=== PATIENT | female | born 1960 | race African-American/Black ===

== ENCOUNTER 2016-05-03 17:54 | Inpatient (IN) | payer SELFPAY ==
[~2016-05-03] VITALS: Ht 160 cm; Wt 85.7 kg
[2016-05-03 19:41] LABS: BILIRUBIN,URINE NEGATIVE (NEG); GLUCOSE,URINE NEGATIVE (NEG); NITRITE,URINE NEGATIVE (NEG); PROTEIN,URINE NEGATIVE (NEG-TRACE); UROBILINOGEN,URINE 0.2 mg/dL (0.2 mg/dL)
--- NOTE | 2016-05-03 19:42 | PHYS DOC ---
Past Medical History Past Medical History: Hypertension, Hypothyroid Past Surgical History: No Surgical History Alcohol Use: None Drug Use: None Adult General Chief Complaint Chief Complaint: UPPER EXTREMITY PAIN HPI HPI Patient is a 56 year old female who presents with right wrist and hand pain. Patient reports since Tuesday she has been having increasing pain and swelling in her right hand and wrist. No trauma or other clear inciting event. She has not taken anything for pain. No prior similar episodes. Only other complaint is urinary frequency. Review of Systems Review of Systems Constitutional: Denies fever or chills Eyes: Denies change in visual acuity or eye pain HENT: Denies nasal congestion or sore throat Respiratory: Denies cough or shortness of breath Cardiovascular: Denies chest pain GI: Denies abdominal pain, nausea, vomiting, bloody stools or diarrhea : Urinary frequency. Denies dysuria or hematuria Musculoskeletal: R wrist and hand pain Integument: Denies rash or skin lesions Neurologic: Denies headache, focal weakness or sensory changes Current Medications Current Medications Current Medications Medications (Trade) Dose Ordered Sig/Bud Start Time Stop Time Status Last Admin Dose Admin Acetaminophen (Tylenol) 650 mg PRN Q4HRS PRN 05/03/16 22:30 05/04/16 22:29 Acetaminophen/ Hydrocodone Bitart (Lortab 5/325) 2 tab 1X ONCE 05/03/16 19:45 05/03/16 19:46 DC 05/03/16 20:10 2 TAB Ceftriaxone Sodium (Rocephin 1gm Ivpb For Omni) 50 ml @ 100 mls/hr 1X ONCE 05/03/16 22:30 05/03/16 22:59 DC 05/03/16 22:55 100 MLS/HR Ibuprofen (Motrin) 800 mg 1X ONCE 05/03/16 19:45 05/03/16 19:46 DC 05/03/16 20:10 800 MG Morphine Sulfate 4 mg 4 mg PRN Q2HR PRN 05/03/16 22:30 05/04/16 22:29 Ondansetron HCl (Zofran) 4 mg PRN Q8HRS PRN 05/03/16 22:30 05/04/16 22:29 Sodium Chloride (Iv Sodium Chloride 0.9% 1000ml Bag) 1,000 ml @ 125 mls/hr Q8H 05/03/16 22:30 05/04/16 22:29 05/03/16 22:46 125 MLS/HR Vancomycin HCl 1 each 1 each PRN DAILY PRN 05/03/16 22:30 Allergies Allergies Allergies Coded Allergies Type Severity Reaction Last Updated Verified No Known Drug Allergies 05/03/16 No Physical Exam Physical Exam Constitutional: Well developed, well nourished, non-toxic appearance HENT: Normocephalic, atraumatic, bilateral external ears normal Eyes: EOMI, conjunctiva normal, no discharge Neck: Normal range of motion, no stridor Cardiovascular: Tachycardic, regular rhythm, no murmur Lungs & Thorax: Bilateral breath sounds clear to auscultation Abdomen: Bowel sounds normal, soft, non-distended, no TTP Skin: Warm, dry, no erythema, no rash Extremities: R wrist and hand swollen compared to L; wrist markedly TTP over volar aspect; significant pain with passive flexion/extension of fingers and wrist; wrist and hand warm to touch; 2+ radial pulse, sensation to light touch fully intact Neurologic: Alert and oriented X 3, no gross deficits noted Psychologic: Affect normal, judgement normal, mood normal Current Patient Data Vital Signs Vital Signs Date Time Temp Pulse Resp B/P Pulse Ox O2 Delivery O2 Flow Rate FiO2 05/03/16 20:10 14 95 Room Air 05/03/16 19:00 98 193/88 05/03/16 18:16 99.4 99.4 Lab Values Laboratory Tests Test 05/03/16 18:48 05/03/16 19:43 05/03/16 19:59 05/03/16 22:28 Urine Color Yellow Urine Clarity Clear Urine pH 7.0 Urine Specific [place] 1.010 Urine Protein Negativemg/dL (NEG-TRACE) Urine Glucose (UA) Negativemg/dL (NEG) Urine Ketones (Stick) Negativemg/dL (NEG) Urine Blood Small (NEG) Urine Nitrite Negative (NEG) Urine Bilirubin Negative (NEG) Urine Urobilinogen Dipstick 0.2mg/dL (0.2 mg/dL) Urine Leukocyte Esterase Negative (NEG) Urine RBC Occ/HPF (0-2) Urine WBC 1-4/HPF (0-4) Urine Squamous Epithelial Cells Occ/LPF Urine Bacteria Few/HPF (0-FEW) Glucose (Fingerstick) 105mg/dL (70-99) H White Blood Count 11.8x10^3/uL (4.0-11.0) H Red Blood Count 4.11x10^6/uL (3.50-5.40) Hemoglobin 10.8g/dL (12.0-15.5) L Hematocrit 31.6% (36.0-47.0) L Mean Corpuscular Volume 77fL (79-100) L Mean Corpuscular Hemoglobin 26pg (25-35) Mean Corpuscular Hemoglobin Concent 34g/dL (31-37) Red Cell Distribution Width 15.1% (11.5-14.5) H Platelet Count 347x10^3/uL (140-400) Neutrophils (%) (Auto) 72% (31-73) Lymphocytes (%) (Auto) 20% (24-48) L Monocytes (%) (Auto) 6% (0-9) Eosinophils (%) (Auto) 1% (0-3) Basophils (%) (Auto) 1% (0-3) Neutrophils # (Auto) 8.5x10^3uL (1.8-7.7) H Lymphocytes # (Auto) 2.3x10^3/uL (1.0-4.8) Monocytes # (Auto) 0.7x10^3/uL (0.0-1.1) Eosinophils # (Auto) 0.1x10^3/uL (0.0-0.7) Basophils # (Auto) 0.1x10^3/uL (0.0-0.2) Erythrocyte Sedimentation Rate 70 (0-25) H Sodium Level 145mmol/L (136-145) Potassium Level 3.6mmol/L (3.5-5.1) Chloride Level 106mmol/L (98-107) Carbon Dioxide Level 29mmol/L (21-32) Anion Gap 10 (6-14) Blood Urea Nitrogen 12mg/dL (7-20) Creatinine 0.9mg/dL (0.6-1.0) Estimated GFR (Cockcroft-Gault) 79.0 Glucose Level 109mg/dL (70-99) H Lactic Acid Level 1.1mmol/L (0.4-2.0) Calcium Level 9.2mg/dL (8.5-10.1) Laboratory Tests 05/03/16 19:59 Laboratory Tests 05/03/16 22:28 EKG EKG [] Radiology/Procedures Radiology/Procedures X-ray R wrist (my read): No acute abnormality X-ray R hand (my read): No acute abnormality Course & Med Decision Making Course & Med Decision Making Pertinent Labs and Imaging studies reviewed. (See chart for details) Patient is 56-year-old female who presents with right hand and wrist pain and swelling. Right hand and wrist inflamed; no evidence of trauma that would act as infectious source. Will obtain labs and x-rays. Oral pain medication ordered for pain relief. Imaging results as above. Labs notable for mild leukocytosis and elevated ESR. On reexamination, wrist and hand remains significantly tender to palpation with significant pain on passive extension of fingers and wrist. Concern for serious process such as flexor tenosynovitis, although patient does not fit a classic picture of this. I discussed with Dr. Castellano. We will admit patient to hospitalist service, cover with antibiotics, keep NPO, and obtain MRI of hand and wrist in the morning. Discussed with Dr. Lange, will admit under her care for further evaluation and treatment. Dragon Disclaimer Dragon Disclaimer This electronic medical record was generated, in whole or in part, using a voice recognition dictation system. Departure Departure Impression: Primary Impression: Wrist pain, right Additional Impression: Hand pain, right Disposition: ADMITTED INPATIENT Admitting Physician: Lakisha Lange Condition: STABLE Referrals: UNKNOWN PCP NAME (PCP) Problem Qualifiers PORTIA DORAN MD May 03, 2016 19:42
[2016-05-03] MEDS ORDERED: HYDROCODONE/APAP 5/325MG TABLET. PO ONE (19:45)
[2016-05-03] MEDS ORDERED: IBUPROFEN 800 MG TABLET. PO ONE (19:45)
[2016-05-03 19:55] LABS: BACTERIA,URINE FEW /HPF (0-FEW); RBC,URINE OCC /HPF (0-2); SQUAMOUS EPITHELIAL CELL,UR OCC /LPF
[2016-05-03 20:07] LABS: BASO # 0.1 x10^3/uL (0.0-0.2); BASO % 1 % (0-3); EOS % 1 % (0-3); HEMATOCRIT 31.6 % (36.0-47.0); HEMOGLOBIN 10.8 g/dL (12.0-15.5); LYMPH # 2.3 x10^3/uL (1.0-4.8); LYMPH % 20 % (24-48); MEAN CORPUSCULAR HEMOGLOBIN 26 pg (25-35); MEAN CORPUSCULAR HGB CONC 34 g/dL (31-37); MEAN CORPUSCULAR VOLUME 77 fL (79-100); MONO % 6 % (0-9); NEUT % 72 % (31-73); PLATELET COUNT 347 x10^3/uL (140-400); RED BLOOD COUNT 4.11 x10^6/uL (3.50-5.40); RED CELL DISTRIBUTION WIDTH 15.1 % (11.5-14.5); WHITE BLOOD COUNT 11.8 x10^3/uL (4.0-11.0)
[2016-05-03] MEDS ORDERED: ONDANSETRON PF 4 MG/2 ML VIAL. IV PRN (22:30)
[2016-05-03] MEDS ORDERED: MORPHINE SULFATE 4 MG/ML DISP.SYRIN. IV PRN (22:30)
[2016-05-03] MEDS ORDERED: CEFTRIAXONE 1GM IVPB FOR OMNI 50 ML IV ONE (22:30)
[2016-05-03] MEDS ORDERED: VANCOMYCIN PER PHARMACY MC PRN (22:30)
[2016-05-03] MEDS ORDERED: ACETAMINOPHEN 325 MG TABLET. PO PRN (22:30)
--- NOTE | 2016-05-03 22:35 | ACF ---
Admission Forms Criteria MUSCULOSKELETAL DISEASE GRG Clinical Indications for Admission to Inpatient Care (Place 'X' for any and all applicable criteria): Hospital admission is needed for appropriate care of the patient because of ANY ONE of the following: [X]I. Fracture, dislocation, or other musculoskeletal injury requiring inpatient care(medical) as indicated by ANY ONE of the following(4)(5)(6)(7) [ ]a) Vertebral fracture requiring observation for instability or neurologic compromise (8) [ ]b) Compartment syndrome (proven or cannot be ruled out during observation level of care) (9) [ ]c) Limb-threatening injury [ ]d) Major injury requiring inpatient stabilization such as traction initiation or external fixation before internal fixation or closure of complex or open fracture [ ]e) Major injury requiring inpatient treatment after emergency or observation level care (as appropriate) [X]f) Severe pain requiring acute inpatient management [ ]II. Newly diagnosed or suspected bone, joint, or orthopedic device infection (e.g., osteomyelitis, septic arthritis) needing ANY ONE of the following(1)(2)(3) [ ]a) IV antibiotics that cannot be initiated in other than inpatient setting (e.g., patient too unstable or home infusion not available) [ ]b) Device removal or replacement [ ]c) Bone or soft tissue debridement [ ]d) Joint drainage (drain placement or repetitive aspirations) [ ]III. Severe rheumatologic disease (e.g., systemic lupus erythematosus, rheumatoid arthritis) with complications or comorbidities (Also use Optimal Recovery Care Criteria or General Recovery Criteria as appropriate on the basis of predominant condition), including ANY ONE of the following(10 )(11)(12)(13) [ ]a) Severe infection (e.g., CAN DRYER infection, sepsis) (14) [ ]b) Respiratory complications, including ANY ONE of the following: [ ]i) Pleural effusion with respiratory compromise [ ]ii) Pulmonary hypertension with congestive failure [ ]iii) Respiratory failure [ ]iv) Pulmonary hemorrhage (15) [ ]c) Hematologic disease, including ANY ONE of the following: [ ]i) Coagulopathy with bleeding [ ]ii) Thrombosis with hypercoagulable state [ ]iii) Thrombotic thrombocytopenic purpura [ ]d) Cerebritis with seizures, psychosis, or other severe abnormalities [ ]e) Vertebral destruction with monitoring needed for cervical myelopathy& possible respiratory compromise [ ]f) Exacerbation that requires inpatient treatment (e.g., intravenous immunosuppression) (16) [ ]g) Acute renal failure [ ]IV. Severe vasculitis with complications or comorbidities (Also use Optimal Recovery Care Criteria or General Recovery Criteria as appropriate on the basis of predominant condition), including ANY ONE of the following(11)(12)(17)(18)(19)(20) [ ]a) CAN DRYER vasculitis with seizures, psychosis, or other severe abnormalities (22) [ ]b) Renal failure (16) [ ]c) Pulmonary hemorrhage (15) [ ]d) Cerebral infarction [ ]e) Gastrointestinal ischemia [ ]f) Gangrene or threatened amputation [ ]g) Exacerbation that requires inpatient treatment (e.g., intravenous immunosuppression) (19)(21) [ ]V. Severe myopathy as indicated by ANY ONE of the following (28)(29) [ ]a) New onset of airway compromise or inability to swallow [ ]b) Respiratory deterioration with observation needed for impending respiratory failure [ ]c) Exacerbation that requires inpatient treatment (e.g., intravenous immunosuppression) [ ]. Severe gout (crystal arthropathy) as indicated by ANY ONE of the following (23)(24) [ ]a) Severe pain requiring acute inpatient management [ ]b) Exacerbation that requires inpatient treatment (e.g., intravenous treatment) [ ]VII.Rhabdomyolysis and ANY ONE of the following (25)(26)(27) [ ]a) Acute renal failure [ ]b) Need for intravenous hydration after emergency or observation level care (as appropriate) [ ]c) Inability to maintain oral hydration [ ]d) Change in mental status [ ]e) Electrolyte abnormality that remains after emergency or observation level care (as appropriate) [ ]VIII Post amputation complication, as indicated by ANY ONE of the following [ ]a) Infection [ ]b) Dehiscence [ ]c) Myodesis failure [ ]IX. Severe pain requiring acute inpatient management as indicated by ALL of the following (30)(31)(32) [ ]a) Continuous or frequent (e.g., every 2 to 4 hrs) parenteral analgesics required [A] [ ]b) Rapid improvement expected from treatment or acute intervention ( e.g., surgery, anesthesia procedure[B] [ ]X. Musculoskeletal Disease and ALL of the following: [ ]a) Symptom or finding for which emergency and observation care have failed or are not considered appropriate (Use General Criteria: Observation Care as appropriate) [ ]b) Presence of ANY ONE of the following [ ]i) A General Admission Criteria [ ]ii) A Pediatric General Admission Criteria The original [facility] content created by [facility] has been revised. The portions of the content which have been revised are identified through the use of italic text or in bold, and [facility] has neither reviewed nor approved the modified material. All other unmodified content is copyright [facility]. Please see references footnoted in the original [facility] edition 2016 Admission Criteria Met?: Yes JONNY LU May 03, 2016 22:34
[2016-05-03] MEDS ORDERED: VANCOMYCIN 2 GM in IV NORMAL SALINE 500ML BAG 500 ML IV ONE (22:45)
[2016-05-03] MEDS: IV NORMAL SALINE 1000ML BAG 1,000 ML IV SCH (22:46)
[2016-05-03 22:52] LABS: CALCIUM 9.2 mg/dL (8.5-10.1); CREATININE 0.9 mg/dL (0.6-1.0); POTASSIUM 3.6 mmol/L (3.5-5.1)
[2016-05-03 23:50] VITALS: BP_SYST 153; BP_DIAS 66; BP_DIAS 73
[2016-05-04] MEDS ORDERED: LISI1TAB5 PO (00:25)
[2016-05-04] MEDS ORDERED: ATOR10TA PO (00:25)
[2016-05-04] MEDS ORDERED: LEVO100T5 PO (00:25)
[2016-05-04] MEDS ORDERED: DIPHENHYDRAMINE HCL 25 MG CAPSULE PO PRN (01:00)
[2016-05-04] MEDS: IV NORMAL SALINE 1000ML BAG 1,000 ML IV SCH ×2 (01:18→12:25)
[2016-05-04] MEDS ORDERED: DIPHENHYDRAMINE 50 MG/ML VIAL IVP ONE (01:30)
[2016-05-04 03:00] VITALS: BP 106/54
[2016-05-04 04:48] LABS: BASO # 0.1 x10^3/uL (0.0-0.2); BASO % 1 % (0-3); EOS % 1 % (0-3); HEMATOCRIT 27.1 % (36.0-47.0); HEMOGLOBIN 9.5 g/dL (12.0-15.5); LYMPH # 3.3 x10^3/uL (1.0-4.8); LYMPH % 34 % (24-48); MEAN CORPUSCULAR HEMOGLOBIN 27 pg (25-35); MEAN CORPUSCULAR HGB CONC 35 g/dL (31-37); MEAN CORPUSCULAR VOLUME 76 fL (79-100); MONO % 10 % (0-9); NEUT % 55 % (31-73); PLATELET COUNT 293 x10^3/uL (140-400); RED BLOOD COUNT 3.57 x10^6/uL (3.50-5.40); RED CELL DISTRIBUTION WIDTH 16.3 % (11.5-14.5); WHITE BLOOD COUNT 9.7 x10^3/uL (4.0-11.0)
[2016-05-04 05:11] LABS: CALCIUM 8.4 mg/dL (8.5-10.1); CREATININE 0.8 mg/dL (0.6-1.0); GFR 90.4; POTASSIUM 3.3 mmol/L (3.5-5.1)
[2016-05-04 07:00] VITALS: BP 123/74
--- NOTE | 2016-05-04 08:01 | RAD ---
EXAM: 1. Right hand 3 views. 2. Right wrist 3 views. HISTORY: Right hand and wrist pain/swelling. COMPARISON: None. FINDINGS: No fractures are identified throughout the right hand or wrist. Alignment is maintained. Nonuniform joint space narrowing and osteophytosis indicate osteoarthritis. This is [id number] at the first carpometacarpal and triscaphe articulations. It is mild at the first through third metacarpophalangeal joints. There is also minimal throughout the interphalangeal joints, most notable at the first ray. IMPRESSION: 1. Mild to moderate osteoarthritis as above.
[2016-05-04] MEDS ORDERED: ONDANSETRON PF 4 MG/2 ML VIAL. IV PRN (09:06)
[2016-05-04] MEDS ORDERED: GADOBUTROL 7.5 MMOL/7.5 ML VIAL IV ONE (09:15)
[2016-05-04] MEDS ORDERED: POTASSIUM CHLORIDE 20 MEQ TABLET.ER. PO ONE (09:30)
--- NOTE | 2016-05-04 10:09 | RAD ---
PROCEDURE MR of the right wrist HISTORY Pain originating in the right wrist for 4 days. Pain and swelling extending into the arm and the hand. TECHNIQUE Multiplanar sequences are obtained. As per request, 7.5 cc Gadovist was administered. COMPARISON None FINDINGS The triangular fibrocartilage demonstrates some internal abnormal signal compatible with degeneration. There is also evidence of some partial proximal surface tearing of the central disc on the thin section images but no through and through defect or rupture. There is a slight ulna minus variance. The extensor carpi ulnaris tendon demonstrates mild tendinosis. First extensor compartment demonstrates mild tendinosis. The flexor tendons are intact. Median nerve is unremarkable. There is some heterogeneous signal within the scapholunate ligament compatible with degeneration. No evidence of scapholunate ligament tear. No evidence of lunotriquetral ligament tear. No evidence of a bone lesion. No acute fracture. There is mild fluid between the flexor tendons and tracking within the adjacent soft tissues and along the distal flexor muscles. There is also mild enhancement. No organized fluid collection. No enhancing solid mass. There is a mild fluid accumulation along the medial aspect of the wrist, may represent small radiocarpal and midcarpal effusion. IMPRESSION 1. Partial tearing of the central disc of the triangular fibrocartilage. 2. Mild extensor carpi ulnaris tendinosis. 3. Mild 1st extensor compartment tendinosis. 4. Mild disorganized tracking fluid and edema within the flexor compartment of the wrist and distal forearm, more so laterally. Nonspecific, consider inflammatory, infectious or traumatic etiology. No evidence of flexor tendon tear. Electronically signed by: Hakeem Salmon MD (May 04, 2016 10:07:46)
[2016-05-04] MEDS: LEVOTHYROXINE 100 MCG TABLET PO SCH (10:41)
[2016-05-04] MEDS: HYDROCHLOROTHIAZIDE 12.5 MG CAPSULE. PO SCH (10:41)
[2016-05-04] MEDS: LISINOPRIL 20 MG TABLET PO SCH (10:41)
[2016-05-04] MEDS ORDERED: VANCOMYCIN 1.25 GM in IV NORMAL SALINE 250ML 250 ML IV SCH (11:00)
[2016-05-04 11:03] VITALS: BP 142/75
--- NOTE | 2016-05-04 11:26 | PDOC1 ---
History and Physical Date of Admission Date of Admission DATE: 05/04/16 TIME: 11:19 Identification/Chief Complaint Chief Complaint R wrist/hand pain Source Source: Caregiver, Chart review, Patient History of Present Illness History of Present Illness 56 y/o AA female, admitted for remarkable R wrist, and hand pain, swelling and limited ROM, no trauma, no identifiable precipitating factor. NO fevers. ESR elevated. WBC 11 on admission, down to 9 today,. HAd vancomycin last night but claimed had itching and so was stopped. NO rash, no SOA. NKDA. Never happened before Xrays of jt neg - MRI done, results pending Son claims pt notes of R knee pain - hx of ligmentous sx on RT knee some 4-5 yrs ago Son claims weak Past Medical History Cardiovascular: HTN, Hyperlipidemia Endocrine: Hypothyroidism Past Surgical History Past Surgical History: Other (Rt knee sx ligamentous) Family History Family History: No Significant Social History Smoke: No ALCOHOL: none Drugs: None Current Problem List Problem List Problems Medical Problems: (1) Hand pain, right Status: Acute (2) Wrist pain, right Status: Acute Problems: Current Medications Current Medications Current Medications Ibuprofen (Motrin) 800 mg 1X ONCE PO Last administered on 05/03/16 20:10; Start 05/03/16 at 19:45; Stop 05/03/16 at 19:46; Status DC Acetaminophen/ Hydrocodone Bitart (Lortab 5/325) 2 tab 1X ONCE PO Last administered on 05/03/16 20:10; Start 05/03/16 at 19:45; Stop 05/03/16 at 19:46; Status DC Vancomycin HCl 1 each 1 each PRN DAILY PRN MC SEE COMMENTS Last administered on 05/04/16 02:31; Start 05/03/16 at 22:30 Ceftriaxone Sodium (Rocephin 1gm Ivpb For Omni) 50 ml @ 100 mls/hr 1X ONCE IV Last administered on 05/03/16 22:55; Start 05/03/16 at 22:30; Stop 05/03/16 at 22:59; Status DC Ondansetron HCl (Zofran) 4 mg PRN Q8HRS PRN IV NAUSEA/VOMITING Last administered on 05/04/16 07:42; Start 05/03/16 at 22:30; Stop 05/04/16 at 09:08; Status DC Morphine Sulfate 4 mg 4 mg PRN Q2HR PRN IV SEVERE PAIN; Start 05/03/16 at 22:30 ; Stop 05/04/16 at 22:29 Sodium Chloride (Iv Sodium Chloride 0.9% 1000ml Bag) 1,000 ml @ 125 mls/hr Q8H IV Last administered on 05/04/16 01:18; Start 05/03/16 at 22:30; Stop 05/04/16 at 22:29 Acetaminophen 650 mg 650 mg PRN Q4HRS PRN PO FEVER; Start 05/03/16 at 22:30; Stop 05/04/16 at 22:29 Vancomycin HCl/ Sodium Chloride (Iv Sodium Chloride 0.9% 500ml Bag) 500 ml @ 250 mls/hr 1X ONCE IV Last administered on 05/03/16 22:45; Start 05/03/16 at 22 :45; Stop 05/04/16 at 00:44; Status DC Diphenhydramine HCl (Benadryl) 25 mg 1X ONCE IVP ; Start 05/04/16 at 01:30; Stop 05/04/16 at 01:31; Status DC Diphenhydramine HCl 25 mg 25 mg PRN Q4HRS PRN PO ITCHING; Start 05/04/16 at 01: 00; Stop 05/05/16 at 01:00 Vancomycin HCl/ Sodium Chloride (Iv Sodium Chloride 0.9% 250ml) 250 ml @ 167 mls/hr Q12H IV ; Start 05/04/16 at 11:00 Vancomycin HCl 1 each 1X ONCE MC ; Start 05/05/16 at 10:30; Stop 05/05/16 at 10: 31 Gadobutrol (Gadavist) 7.5 mmol 1X ONCE IV Last administered on 05/04/16 09:25 ; Start 05/04/16 at 09:15; Stop 05/04/16 at 09:16; Status DC Ondansetron HCl (Zofran) 4 mg PRN Q6HRS PRN IV NAUSEA/VOMITING; Start 05/04/16 at 09:06 Atorvastatin Calcium (Lipitor) 10 mg QHS PO ; Start 05/04/16 at 21:00 Levothyroxine Sodium (Synthroid) 100 mcg DAILY07 PO Last administered on 10:41; Start 05/04/16 at 10:00 Non-Formulary Medication 1 tab DAILY PO ; Start 05/05/16 at 09:00; Status UNV Potassium Chloride (Klor-Con) 40 meq 1X ONCE PO Last administered on 05/04/16 10:42; Start 05/04/16 at 09:30; Stop 05/04/16 at 09:31; Status DC Lisinopril (Prinivil) 20 mg DAILY PO Last administered on 05/04/16 10:41; Start 05/04/16 at 10:00 Hydrochlorothiazide (Microzide) 12.5 mg DAILY PO Last administered on 05/04/16 10:41; Start 05/04/16 at 10:00 Active Scripts Active Reported Levothyroxine Sodium 100 Mcg Tablet 1 Tab PO DAILY Lisinopril-Hctz 20-12.5 Mg Tab (Lisinopril/Hydrochlorothiazide) 1 Each Tablet 1 Tab PO DAILY Lipitor (Atorvastatin Calcium) 10 Mg Tablet 1 Tab PO DAILY Allergies Allergies: Coded Allergies: No Known Drug Allergies (Unverified , 05/03/16) ROS General: YES: Other (weak, RT knee pain, all else neg except HPI) Physical Exam General: Alert, Oriented X3, Cooperative, No acute distress HEENT: PERRLA, EOMI Lungs: Clear to auscultation Heart: S1S2, RRR, no thrills, no rubs, no gallops Cardiovascular: S1, S2 Breasts: Normal Abdomen: Normal bowel sounds, Soft, No tenderness, No hepatosplenomegaly, No masses Rectal Exam: not examined PELVIC: Nml ext genitalia Extremities: Other (RTc wrist and hand swelling, pain, limited ROM, no open lesions, limited extension and flexion) Skin: No rashes, No breakdown, No significant lesion Neuro: Normal gait, Normal speech, Strength at 5/5 X4 ext, Normal tone, Sensation intact, Cranial nerves 3-12 NL, Reflexes 2+ Psych/Mental Status: Mental status NL, Mood NL Vitals Vitals Vital Signs Date Time Temp Pulse Resp B/P Pulse Ox O2 Delivery O2 Flow Rate FiO2 05/04/16 11:03 98.1 80 18 142/75 98 Room Air 98.1 Labs Labs Laboratory Tests Test 05/03/16 18:48 05/03/16 19:43 05/03/16 19:59 05/03/16 22:28 Urine Color Yellow Urine Clarity Clear Urine pH 7.0 Urine Specific Lapaz 1.010 Urine Protein Negativemg/dL (NEG-TRACE) Urine Glucose (UA) Negativemg/dL (NEG) Urine Ketones (Stick) Negativemg/dL (NEG) Urine Blood Small (NEG) Urine Nitrite Negative (NEG) Urine Bilirubin Negative (NEG) Urine Urobilinogen Dipstick 0.2mg/dL (0.2 mg/dL) Urine Leukocyte Esterase Negative (NEG) Urine RBC Occ/HPF (0-2) Urine WBC 1-4/HPF (0-4) Urine Squamous Epithelial Cells Occ/LPF Urine Bacteria Few/HPF (0-FEW) Glucose (Fingerstick) 105mg/dL (70-99) White Blood Count 11.8x10^3/uL (4.0-11.0) Red Blood Count 4.11x10^6/uL (3.50-5.40) Hemoglobin 10.8g/dL (12.0-15.5) Hematocrit 31.6% (36.0-47.0) Mean Corpuscular Volume 77fL (79-100) Mean Corpuscular Hemoglobin 26pg (25-35) Mean Corpuscular Hemoglobin Concent 34g/dL (31-37) Red Cell Distribution Width 15.1% (11.5-14.5) Platelet Count 347x10^3/uL (140-400) Neutrophils (%) (Auto) 72% (31-73) Lymphocytes (%) (Auto) 20% (24-48) Monocytes (%) (Auto) 6% (0-9) Eosinophils (%) (Auto) 1% (0-3) Basophils (%) (Auto) 1% (0-3) Neutrophils # (Auto) 8.5x10^3uL (1.8-7.7) Lymphocytes # (Auto) 2.3x10^3/uL (1.0-4.8) Monocytes # (Auto) 0.7x10^3/uL (0.0-1.1) Eosinophils # (Auto) 0.1x10^3/uL (0.0-0.7) Basophils # (Auto) 0.1x10^3/uL (0.0-0.2) Erythrocyte Sedimentation Rate 70 (0-25) Sodium Level 145mmol/L (136-145) Potassium Level 3.6mmol/L (3.5-5.1) Chloride Level 106mmol/L (98-107) Carbon Dioxide Level 29mmol/L (21-32) Anion Gap 10 (6-14) Blood Urea Nitrogen 12mg/dL (7-20) Creatinine 0.9mg/dL (0.6-1.0) Estimated GFR (Cockcroft-Gault) 79.0 Glucose Level 109mg/dL (70-99) Lactic Acid Level 1.1mmol/L (0.4-2.0) Calcium Level 9.2mg/dL (8.5-10.1) Test 05/04/16 04:38 White Blood Count 9.7x10^3/uL (4.0-11.0) Red Blood Count 3.57x10^6/uL (3.50-5.40) Hemoglobin 9.5g/dL (12.0-15.5) Hematocrit 27.1% (36.0-47.0) Mean Corpuscular Volume 76fL (79-100) Mean Corpuscular Hemoglobin 27pg (25-35) Mean Corpuscular Hemoglobin Concent 35g/dL (31-37) Red Cell Distribution Width 16.3% (11.5-14.5) Platelet Count 293x10^3/uL (140-400) Neutrophils (%) (Auto) 55% (31-73) Lymphocytes (%) (Auto) 34% (24-48) Monocytes (%) (Auto) 10% (0-9) Eosinophils (%) (Auto) 1% (0-3) Basophils (%) (Auto) 1% (0-3) Neutrophils # (Auto) 5.3x10^3uL (1.8-7.7) Lymphocytes # (Auto) 3.3x10^3/uL (1.0-4.8) Monocytes # (Auto) 0.9x10^3/uL (0.0-1.1) Eosinophils # (Auto) 0.1x10^3/uL (0.0-0.7) Basophils # (Auto) 0.1x10^3/uL (0.0-0.2) Sodium Level 144mmol/L (136-145) Potassium Level 3.3mmol/L (3.5-5.1) Chloride Level 108mmol/L (98-107) Carbon Dioxide Level 27mmol/L (21-32) Anion Gap 9 (6-14) Blood Urea Nitrogen 13mg/dL (7-20) Creatinine 0.8mg/dL (0.6-1.0) Estimated GFR (Cockcroft-Gault) 90.4 Glucose Level 116mg/dL (70-99) Calcium Level 8.4mg/dL (8.5-10.1) Laboratory Tests Test 05/03/16 18:48 05/03/16 19:43 05/03/16 19:59 05/03/16 22:28 Urine Color Yellow Urine Clarity Clear Urine pH 7.0 Urine Specific Lapaz 1.010 Urine Protein Negativemg/dL (NEG-TRACE) Urine Glucose (UA) Negativemg/dL (NEG) Urine Ketones (Stick) Negativemg/dL (NEG) Urine Blood Small (NEG) Urine Nitrite Negative (NEG) Urine Bilirubin Negative (NEG) Urine Urobilinogen Dipstick 0.2mg/dL (0.2 mg/dL) Urine Leukocyte Esterase Negative (NEG) Urine RBC Occ/HPF (0-2) Urine WBC 1-4/HPF (0-4) Urine Squamous Epithelial Cells Occ/LPF Urine Bacteria Few/HPF (0-FEW) Glucose (Fingerstick) 105mg/dL (70-99) White Blood Count 11.8x10^3/uL (4.0-11.0) Red Blood Count 4.11x10^6/uL (3.50-5.40) Hemoglobin 10.8g/dL (12.0-15.5) Hematocrit 31.6% (36.0-47.0) Mean Corpuscular Volume 77fL (79-100) Mean Corpuscular Hemoglobin 26pg (25-35) Mean Corpuscular Hemoglobin Concent 34g/dL (31-37) Red Cell Distribution Width 15.1% (11.5-14.5) Platelet Count 347x10^3/uL (140-400) Neutrophils (%) (Auto) 72% (31-73) Lymphocytes (%) (Auto) 20% (24-48) Monocytes (%) (Auto) 6% (0-9) Eosinophils (%) (Auto) 1% (0-3) Basophils (%) (Auto) 1% (0-3) Neutrophils # (Auto) 8.5x10^3uL (1.8-7.7) Lymphocytes # (Auto) 2.3x10^3/uL (1.0-4.8) Monocytes # (Auto) 0.7x10^3/uL (0.0-1.1) Eosinophils # (Auto) 0.1x10^3/uL (0.0-0.7) Basophils # (Auto) 0.1x10^3/uL (0.0-0.2) Erythrocyte Sedimentation Rate 70 (0-25) Sodium Level 145mmol/L (136-145) Potassium Level 3.6mmol/L (3.5-5.1) Chloride Level 106mmol/L (98-107) Carbon Dioxide Level 29mmol/L (21-32) Anion Gap 10 (6-14) Blood Urea Nitrogen 12mg/dL (7-20) Creatinine 0.9mg/dL (0.6-1.0) Estimated GFR (Cockcroft-Gault) 79.0 Glucose Level 109mg/dL (70-99) Lactic Acid Level 1.1mmol/L (0.4-2.0) Calcium Level 9.2mg/dL (8.5-10.1) Test 05/04/16 04:38 White Blood Count 9.7x10^3/uL (4.0-11.0) Red Blood Count 3.57x10^6/uL (3.50-5.40) Hemoglobin 9.5g/dL (12.0-15.5) Hematocrit 27.1% (36.0-47.0) Mean Corpuscular Volume 76fL (79-100) Mean Corpuscular Hemoglobin 27pg (25-35) Mean Corpuscular Hemoglobin Concent 35g/dL (31-37) Red Cell Distribution Width 16.3% (11.5-14.5) Platelet Count 293x10^3/uL (140-400) Neutrophils (%) (Auto) 55% (31-73) Lymphocytes (%) (Auto) 34% (24-48) Monocytes (%) (Auto) 10% (0-9) Eosinophils (%) (Auto) 1% (0-3) Basophils (%) (Auto) 1% (0-3) Neutrophils # (Auto) 5.3x10^3uL (1.8-7.7) Lymphocytes # (Auto) 3.3x10^3/uL (1.0-4.8) Monocytes # (Auto) 0.9x10^3/uL (0.0-1.1) Eosinophils # (Auto) 0.1x10^3/uL (0.0-0.7) Basophils # (Auto) 0.1x10^3/uL (0.0-0.2) Sodium Level 144mmol/L (136-145) Potassium Level 3.3mmol/L (3.5-5.1) Chloride Level 108mmol/L (98-107) Carbon Dioxide Level 27mmol/L (21-32) Anion Gap 9 (6-14) Blood Urea Nitrogen 13mg/dL (7-20) Creatinine 0.8mg/dL (0.6-1.0) Estimated GFR (Cockcroft-Gault) 90.4 Glucose Level 116mg/dL (70-99) Calcium Level 8.4mg/dL (8.5-10.1) VTE Prophylaxis Ordered VTE Prophylaxis Devices: Yes VTE Pharmacological Prophylaxi: Yes Assessment/Plan Assessment/Plan 1. Inflammatory Joint, RT wrist and hand swelling, pain, limited ROM difftls include septic jt, CPPD, doubt gout, etc 2. HTN, dyslipidemia, hypothyroidism, chronic stable 3. Adverse reaction to vanco PLAN: Check Uric acid ESR is elevated Dc vanc Do IV rocpehin instead Await MRI- if signif fluid might need aspiration and get sample for analysis May check knee xray per son's request PT/OT inze rn, ID and family and pt ANTONIA DEVRIES MD May 04, 2016 11:26
[2016-05-04] MEDS ORDERED: CEFTRIAXONE SODIUM 1 GM in IV NORMAL SALINE 50ML 50 ML IV SCH (12:00)
[2016-05-04] MEDS: NAPROXEN 500 MG TABLET PO SCH ×2 (12:00→16:21)
[2016-05-04 15:00] VITALS: BP 136/78
--- NOTE | 2016-05-04 15:35 | RAD ---
EXAM: Right knee, 2 views HISTORY: Right knee pain. COMPARISON: 11/24/2011. FINDINGS: No fractures are identified. The medial compartmental joint space is mostly effaced with mild varus angulation. There are small osteophytes medially and laterally and moderate osteophytes along the patellofemoral compartment. Atherosclerotic calcifications are noted. There is a trace joint effusion. IMPRESSION: 1. Moderate to severe medial compartment predominant tricompartmental osteoarthritis has progressed since 2011.
[2016-05-04 19:00] VITALS: BP 114/69
[2016-05-04] MEDS ORDERED: ATORVASTATIN CALCIUM 10 MG TABLET. PO SCH (21:00)
[2016-05-04 23:00] VITALS: BP 132/77
[2016-05-05 03:00] VITALS: BP 121/70
--- NOTE | 2016-05-05 05:19 | CONS ---
DATE OF CONSULTATION: 05/04/2016 REQUESTING PHYSICIAN: Dr. Lange REASON FOR CONSULTATION: Right wrist and hand pain. HISTORY OF PRESENT ILLNESS: The patient is a 56-year-old female who had atraumatic onset of right wrist and hand pain since Tuesday. She denies any trauma whatsoever. She denies any scratch or poke injury to the hand, wrist or any of the fingers. She has not taken anything for pain, but notes that she has difficulty moving, the fingers in flexion or extension. She had severe pain, previous at the time of admission in the ER with moving her thumb at all, but can now readily move it. PAST MEDICAL HISTORY: Significant for hypertension and hypothyroidism. PAST SURGICAL HISTORY: She has no surgical history. SOCIAL HISTORY: Lives independently. Denies tobacco, alcohol or drug use. MEDICATIONS: List is reviewed. ALLERGIES: She has no known drug allergies. REVIEW OF SYSTEMS: Denies any fever or chills; ____ pain. She complains about it all occasionally in her right knee, activity related, but that is not a current problem. She also has some urinary frequency, occasionally, but denies any recent changes of bowel or bladder function, numbness, tingling in extremities mainly and no skin rashes. She does just indicate the warmth and swelling and pain with motion of the right wrist and hand. PHYSICAL EXAMINATION: VITAL SIGNS: A pleasant, cooperative female. Temperature 97.9, pulse 75, respirations 18, blood pressure 123/74, and 96% saturation on room air. EXTREMITIES: Examination of the right hand reveals some mild swelling in the area of the volar hand compared to the left. She is mildly tender in the palm diffusely. No distal tenderness over the tendon sheaths. She does have some tenderness over the wrist itself and over the area of the carpal tunnel, but can actually actively move her fingers in flexion and extension pretty well, but not get down into a full grasp secondary to pain. There is really no swelling of her digits. No passive pain on range of motion and very severe acute pain with active or passive motion of the thumb or fingers. No redness, erythema or sign of any type of trauma or wound whatsoever and she has no paresthesia and compression over the median nerve and negative Phalen's sign present. No instability or clunk at the wrist, some slight tenderness over the ulnar styloid area. Normal examination of the contralateral left hand and wrist, bilateral shoulders and elbows with overall intact motor function, distal pulses, sensation, reflexes, skin in both upper extremities throughout. LABORATORY EXAMINATION: On admission was a white count of 11.8, currently 9.7. Sedimentation rate is 70. DIAGNOSTIC DATA: MRI of the wrist and hand showed some inflammation in the area of the volar hand, carpal tunnel and proximal wrist, some mild synovitis present. No extension really noted into the flexor tendon sheaths and no bony edema of any type was noted. Incidentally, she does have a tear of the triangular fibrocartilage and a partial tear of the scapholunate ligament. IMPRESSION: Right wrist inflammation likely noninfectious etiology, resolving. TREATMENT PLAN: I went over with her that her exam apparently seems significantly different than the Emergency Department last night even this morning. I think this is probably given the atraumatic onset noninfectious cause and we could simply observe at this time. Certainly, if she becomes worse or does not resolve as expected, I would probably plan some type of opening the area ____ of the carpal tunnel and take cultures if necessary, but again I would hold off on this at this point due to her significant improvement and lack of paresthesias and the fact that this just may be an inflammatory situation very likely as opposed to any infectious etiology. I will follow along as needed. TONJA SMITH MD DR: TIM/rommel JOB#: [id number] / [id number]
[2016-05-05] MEDS: LEVOTHYROXINE 100 MCG TABLET PO SCH (06:20)
[2016-05-05 06:37] LABS: BASO % 0 % (0-3); EOS % 1 % (0-3); HEMATOCRIT 31.7 % (36.0-47.0); HEMOGLOBIN 10.8 g/dL (12.0-15.5); LYMPH % 36 % (24-48); MEAN CORPUSCULAR HEMOGLOBIN 26 pg (25-35); MEAN CORPUSCULAR HGB CONC 34 g/dL (31-37); MEAN CORPUSCULAR VOLUME 78 fL (79-100); MONO % 9 % (0-9); NEUT % 53 % (31-73); PLATELET COUNT 315 x10^3/uL (140-400); RED BLOOD COUNT 4.08 x10^6/uL (3.50-5.40); RED CELL DISTRIBUTION WIDTH 15.2 % (11.5-14.5); WHITE BLOOD COUNT 8.1 x10^3/uL (4.0-11.0)
[2016-05-05 06:43] LABS: CALCIUM 9.4 mg/dL (8.5-10.1); CREATININE 0.8 mg/dL (0.6-1.0); GFR 90.4; POTASSIUM 4.1 mmol/L (3.5-5.1)
[2016-05-05 07:00] VITALS: BP 135/81
[2016-05-05] MEDS ORDERED: NON FORMULARY ITEM (Lisinopril/Hydrochlorothiazide (Lisinopril-Hctz 20-12.5 Mg Tab) 1 TAB) PO SCH (09:00)
--- NOTE | 2016-05-05 09:49 | PDOC ---
Infectious Disease Note Subjective Subjective Pt admitted with rt wrist pain, no trauma, no fever, no other complaints ROS ROS GEN: Denies fevers, chills, sweats HEENT: Denies blurred vision, sore throat CV: Denies chest pain RESP: Denies shortness of air, cough GI: Denies n/v/d NEURO: Denies confusion, dizziness MSK: Denies weakness, other joint pain/swelling Vital Sign Vital Signs Vital Signs Date Time Temp Pulse Resp B/P Pulse Ox O2 Delivery O2 Flow Rate FiO2 05/05/16 08:00 Room Air 05/05/16 07:00 97.7 69 18 135/81 96 97.7 Physical Exam PHYSICAL EXAM GENERAL: NAD, Alert HEENT: PERRL, OC/OP NECK: Supple, no JVD, no LN LUNGS: Clear HEART: S1S2, no gallop, no murmur ABD: Soft, NT, no organomegaly, no rebound EXT: No edema, no cyanosis, rt wrist with some inflammation, no fluid, no redness 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, 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, no focal neurologic deficit SKIN: No rash IV: ok Labs Lab Laboratory Tests Test 05/05/16 06:10 White Blood Count 8.1x10^3/uL (4.0-11.0) Red Blood Count 4.08x10^6/uL (3.50-5.40) Hemoglobin 10.8g/dL (12.0-15.5) Hematocrit 31.7% (36.0-47.0) Mean Corpuscular Volume 78fL (79-100) Mean Corpuscular Hemoglobin 26pg (25-35) Mean Corpuscular Hemoglobin Concent 34g/dL (31-37) Red Cell Distribution Width 15.2% (11.5-14.5) Platelet Count 315x10^3/uL (140-400) Neutrophils (%) (Auto) 53% (31-73) Lymphocytes (%) (Auto) 36% (24-48) Monocytes (%) (Auto) 9% (0-9) Eosinophils (%) (Auto) 1% (0-3) Basophils (%) (Auto) 0% (0-3) Neutrophils # (Auto) 4.3x10^3uL (1.8-7.7) Lymphocytes # (Auto) 3.0x10^3/uL (1.0-4.8) Monocytes # (Auto) 0.7x10^3/uL (0.0-1.1) Eosinophils # (Auto) 0.1x10^3/uL (0.0-0.7) Basophils # (Auto) 0.0x10^3/uL (0.0-0.2) Sodium Level 141mmol/L (136-145) Potassium Level 4.1mmol/L (3.5-5.1) Chloride Level 105mmol/L (98-107) Carbon Dioxide Level 28mmol/L (21-32) Anion Gap 8 (6-14) Blood Urea Nitrogen 16mg/dL (7-20) Creatinine 0.8mg/dL (0.6-1.0) Estimated GFR (Cockcroft-Gault) 90.4 Glucose Level 112mg/dL (70-99) Calcium Level 9.4mg/dL (8.5-10.1) Micro MRI noted Objective Assessment Tenosynovitis rt wrist Plan Plan of Care ai wilson/arnol on anti inflammatory MITZY Anderson MD May 05, 2016 09:49
[2016-05-05] MEDS ORDERED: NAPR500T3 PO (10:32)
--- NOTE | 2016-05-05 10:35 | PDOC3 ---
Discharge Summary Visit Information Date of Admission: May 03, 2016 Date of Discharge: May 05, 2016 Admitting Diagnosis Comment: Tenosynovitis, R wrist Elevated uric acid NO infection Tricompratment OA, R knee Obesity Final Diagnosis Problems Medical Problems: (1) Hand pain, right Status: Acute (2) Tenosynovitis Status: Acute (3) Wrist pain, right Status: Acute Brief Hospital Course Allergies Allergies Coded Allergies Type Severity Reaction Last Updated Verified No Known Drug Allergies 05/03/16 No Vital Signs Vital Signs Date Time Temp Pulse Resp B/P Pulse Ox O2 Delivery O2 Flow Rate FiO2 05/05/16 08:00 Room Air 05/05/16 07:00 97.7 69 18 135/81 96 97.7 Lab Results Laboratory Tests Test 05/03/16 18:48 05/03/16 19:43 05/03/16 19:59 05/03/16 22:28 Urine Color Yellow Urine Clarity Clear Urine pH 7.0 Urine Specific [place] 1.010 Urine Protein Negativemg/dL (NEG-TRACE) Urine Glucose (UA) Negativemg/dL (NEG) Urine Ketones (Stick) Negativemg/dL (NEG) Urine Blood Small (NEG) Urine Nitrite Negative (NEG) Urine Bilirubin Negative (NEG) Urine Urobilinogen Dipstick 0.2mg/dL (0.2 mg/dL) Urine Leukocyte Esterase Negative (NEG) Urine RBC Occ/HPF (0-2) Urine WBC 1-4/HPF (0-4) Urine Squamous Epithelial Cells Occ/LPF Urine Bacteria Few/HPF (0-FEW) Glucose (Fingerstick) 105mg/dL (70-99) White Blood Count 11.8x10^3/uL (4.0-11.0) Red Blood Count 4.11x10^6/uL (3.50-5.40) Hemoglobin 10.8g/dL (12.0-15.5) Hematocrit 31.6% (36.0-47.0) Mean Corpuscular Volume 77fL (79-100) Mean Corpuscular Hemoglobin 26pg (25-35) Mean Corpuscular Hemoglobin Concent 34g/dL (31-37) Red Cell Distribution Width 15.1% (11.5-14.5) Platelet Count 347x10^3/uL (140-400) Neutrophils (%) (Auto) 72% (31-73) Lymphocytes (%) (Auto) 20% (24-48) Monocytes (%) (Auto) 6% (0-9) Eosinophils (%) (Auto) 1% (0-3) Basophils (%) (Auto) 1% (0-3) Neutrophils # (Auto) 8.5x10^3uL (1.8-7.7) Lymphocytes # (Auto) 2.3x10^3/uL (1.0-4.8) Monocytes # (Auto) 0.7x10^3/uL (0.0-1.1) Eosinophils # (Auto) 0.1x10^3/uL (0.0-0.7) Basophils # (Auto) 0.1x10^3/uL (0.0-0.2) Erythrocyte Sedimentation Rate 70 (0-25) Sodium Level 145mmol/L (136-145) Potassium Level 3.6mmol/L (3.5-5.1) Chloride Level 106mmol/L (98-107) Carbon Dioxide Level 29mmol/L (21-32) Anion Gap 10 (6-14) Blood Urea Nitrogen 12mg/dL (7-20) Creatinine 0.9mg/dL (0.6-1.0) Estimated GFR (Cockcroft-Gault) 79.0 Glucose Level 109mg/dL (70-99) Lactic Acid Level 1.1mmol/L (0.4-2.0) Calcium Level 9.2mg/dL (8.5-10.1) Test 05/04/16 04:38 05/05/16 06:10 White Blood Count 9.7x10^3/uL (4.0-11.0) 8.1x10^3/uL (4.0-11.0) Red Blood Count 3.57x10^6/uL (3.50-5.40) 4.08x10^6/uL (3.50-5.40) Hemoglobin 9.5g/dL (12.0-15.5) 10.8g/dL (12.0-15.5) Hematocrit 27.1% (36.0-47.0) 31.7% (36.0-47.0) Mean Corpuscular Volume 76fL (79-100) 78fL (79-100) Mean Corpuscular Hemoglobin 27pg (25-35) 26pg (25-35) Mean Corpuscular Hemoglobin Concent 35g/dL (31-37) 34g/dL (31-37) Red Cell Distribution Width 16.3% (11.5-14.5) 15.2% (11.5-14.5) Platelet Count 293x10^3/uL (140-400) 315x10^3/uL (140-400) Neutrophils (%) (Auto) 55% (31-73) 53% (31-73) Lymphocytes (%) (Auto) 34% (24-48) 36% (24-48) Monocytes (%) (Auto) 10% (0-9) 9% (0-9) Eosinophils (%) (Auto) 1% (0-3) 1% (0-3) Basophils (%) (Auto) 1% (0-3) 0% (0-3) Neutrophils # (Auto) 5.3x10^3uL (1.8-7.7) 4.3x10^3uL (1.8-7.7) Lymphocytes # (Auto) 3.3x10^3/uL (1.0-4.8) 3.0x10^3/uL (1.0-4.8) Monocytes # (Auto) 0.9x10^3/uL (0.0-1.1) 0.7x10^3/uL (0.0-1.1) Eosinophils # (Auto) 0.1x10^3/uL (0.0-0.7) 0.1x10^3/uL (0.0-0.7) Basophils # (Auto) 0.1x10^3/uL (0.0-0.2) 0.0x10^3/uL (0.0-0.2) Sodium Level 144mmol/L (136-145) 141mmol/L (136-145) Potassium Level 3.3mmol/L (3.5-5.1) 4.1mmol/L (3.5-5.1) Chloride Level 108mmol/L (98-107) 105mmol/L (98-107) Carbon Dioxide Level 27mmol/L (21-32) 28mmol/L (21-32) Anion Gap 9 (6-14) 8 (6-14) Blood Urea Nitrogen 13mg/dL (7-20) 16mg/dL (7-20) Creatinine 0.8mg/dL (0.6-1.0) 0.8mg/dL (0.6-1.0) Estimated GFR (Cockcroft-Gault) 90.4 90.4 Glucose Level 116mg/dL (70-99) 112mg/dL (70-99) Uric Acid 7.5mg/dL (2.6-6.0) Calcium Level 8.4mg/dL (8.5-10.1) 9.4mg/dL (8.5-10.1) Laboratory Tests Test 05/05/16 06:10 White Blood Count 8.1x10^3/uL (4.0-11.0) Red Blood Count 4.08x10^6/uL (3.50-5.40) Hemoglobin 10.8g/dL (12.0-15.5) Hematocrit 31.7% (36.0-47.0) Mean Corpuscular Volume 78fL (79-100) Mean Corpuscular Hemoglobin 26pg (25-35) Mean Corpuscular Hemoglobin Concent 34g/dL (31-37) Red Cell Distribution Width 15.2% (11.5-14.5) Platelet Count 315x10^3/uL (140-400) Neutrophils (%) (Auto) 53% (31-73) Lymphocytes (%) (Auto) 36% (24-48) Monocytes (%) (Auto) 9% (0-9) Eosinophils (%) (Auto) 1% (0-3) Basophils (%) (Auto) 0% (0-3) Neutrophils # (Auto) 4.3x10^3uL (1.8-7.7) Lymphocytes # (Auto) 3.0x10^3/uL (1.0-4.8) Monocytes # (Auto) 0.7x10^3/uL (0.0-1.1) Eosinophils # (Auto) 0.1x10^3/uL (0.0-0.7) Basophils # (Auto) 0.0x10^3/uL (0.0-0.2) Sodium Level 141mmol/L (136-145) Potassium Level 4.1mmol/L (3.5-5.1) Chloride Level 105mmol/L (98-107) Carbon Dioxide Level 28mmol/L (21-32) Anion Gap 8 (6-14) Blood Urea Nitrogen 16mg/dL (7-20) Creatinine 0.8mg/dL (0.6-1.0) Estimated GFR (Cockcroft-Gault) 90.4 Glucose Level 112mg/dL (70-99) Calcium Level 9.4mg/dL (8.5-10.1) Brief Hospital Course Ms. Castaneda is a 56 y/o AA female, admitted for remarkable R wrist, and hand pain, swelling and limited ROM, no trauma, no identifiable precipitating factor. NO fevers. ESR elevated. WBC 11 on admission, down to 9 today,. HAd vancomycin last night but claimed had itching and so was stopped. NO rash, no SOA. NKDA. Never happened before Xrays of it neg - MRI done, results pending Son claims pt notes of R knee pain - hx of ligmentous sx on RT knee some 4-5 yrs ago Son claims weak MRI shows tenosynovitis Rt knee xray shows OA BEtter wrist with naproxen 500 BID given 24 hrs - will dc on the same Ff up ortho if any worse Discharge Information Condition at Discharge: Improved, Stable Disposition/Orders: D/C to Home Scheduled Atorvastatin Calcium (Lipitor) 1 TAB PO DAILY (Reported) Levothyroxine Sodium (Levothyroxine Sodium) 1 TAB PO DAILY (Reported) Lisinopril/Hydrochlorothiazide (Lisinopril-Hctz 20-12.5 Mg Tab) 1 TAB PO DAILY ( Reported) ANTONIA DEVRIES MD May 05, 2016 10:35
[2016-05-05 11:00] VITALS: BP 124/77
[2016-05-05 12:53] VITALS: BP 124/77
[2016-05-05] MEDS: HYDROCHLOROTHIAZIDE 12.5 MG CAPSULE. PO SCH (12:53)
[2016-05-05] MEDS: NAPROXEN 500 MG TABLET PO SCH (12:53)
[2016-05-05] MEDS: LISINOPRIL 20 MG TABLET PO SCH (12:53)
== END 2016-05-05 13:20 | disposition home or self-care (01) | DRG 558 ==
LOC: ER 17:54 → 5 SOUTH 22:31
PROVIDERS: ADMIT Internal Medicine; ATTEND Internal Medicine
DX: M65.9 Synovitis and tenosynovitis, unspecified (principal); E03.9 Hypothyroidism, unspecified; E78.5 Hyperlipidemia, unspecified; I10 Essential (primary) hypertension; M19.90 Unspecified osteoarthritis, unspecified site; Z79.899 Other long term (current) drug therapy
CPT/HCPCS: 36415; 73110; 73130; 73223; 73560; 80048; 81001; 82947; 83605; 84550; 85027; 85651; 87040; 96365; 96366; 96368; J0690; J0696; J2405; J3370; J7030; J7040; 99285-25; A9585

== ENCOUNTER 2020-06-18 07:32 | Observation (INO) | payer OTHER ==
[~2020-06-18] VITALS: Ht 160 cm; Wt 88.5 kg
[~2020-06-18 07:32] MED LIST: ATOR10TA PO; LEVO100T5 PO; LISI1TAB37 PO; NAPR-514 PO
[2020-06-18] MEDS ORDERED: IV NORMAL SALINE 1000ML BAG 1,000 ML IV ONE (08:00)
--- NOTE | 2020-06-18 08:04 | PHYS DOC ---
Past Medical History Past Medical History: CVA, Hypertension, Hypothyroid, Seizure Additional Past Medical Histor: l. sided deficit Past Surgical History: No Surgical History Smoking Status: Former Smoker Alcohol Use: None Drug Use: None General Adult EDM: Chief Complaint: SEIZURE HPI: HPI: Patient is a 60 year old female who was brought here by EMS from home due to seizure activity. 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 Patient is on Keppra 750 mg BID. Her family says her last seizure was last year. She had not taken her morning medication yet. Patient was found to have a seizure this morning in her bed, EMS was called, patient was actively seizing when EMS came. They gave her 5 mg of Versed IM and brought her here for evaluation. There was no evidence of head injury. Patient is complaining of left shoulder pain and left hip pain. She did not fall today. Review of Systems: Review of Systems: Constitutional: Denies fever or chills. [] Eyes: Denies change in visual acuity. [] HENT: Denies nasal congestion or sore throat. [] Respiratory: Denies cough or shortness of breath. [] Cardiovascular: Denies chest pain or edema. [] GI: Denies abdominal pain, nausea, vomiting, bloody stools or diarrhea. [] : Denies dysuria. [] Musculoskeletal: Denies back pain, positive for left hip pain, left shoulder pain Integument: Denies rash. [] Neurologic: Denies headache, focal weakness or sensory changes. Positive for seizure activity. Endocrine: Denies polyuria or polydipsia. [] Lymphatic: Denies swollen glands. [] Psychiatric: Denies depression or anxiety. [] Heart Score: C/O Chest Pain: N/A Risk Factors: Risk Factors: DM, Current or recent (<one month) smoker, HTN, HLP, family history of CAD, obesity. Risk Scores: Score 0 - 3: 2.5% MACE over next 6 weeks - Discharge Home Score 4 - 6: 20.3% MACE over next 6 weeks - Admit for Clinical Observation Score 7 - 10: 72.7% MACE over next 6 weeks - Early Invasive Strategies Current Medications: Current Medications Medications (Trade) Dose Ordered Sig/Bud Start Time Stop Time Status Last Admin Dose Admin Levetiracetam 1000 mg/Dextrose 110 ml @ 440 mls/hr 1X ONCE 06/18/20 08:00 06/18/20 08:14 UNV Sodium Chloride 1,000 ml @ 1,000 mls/hr 1X ONCE 06/18/20 08:00 06/18/20 08:59 Allergies: Allergies: Allergies Coded Allergies Type Severity Reaction Last Updated Verified No Known Drug Allergies 05/03/16 No Physical Exam: PE: Constitutional: Well developed, well nourished, in postictal stage ,confused HENT: Normocephalic, atraumatic, bilateral external ears normal, oropharynx mo ist, no oral exudates, nose normal. [] Eyes: PERRLA, EOMI, conjunctiva normal, no discharge. [] Neck: Normal range of motion, no tenderness, supple, no stridor. [] Cardiovascular:Heart rate regular rhythm, no murmur [] Lungs & Thorax: Bilateral breath sounds clear to auscultation [] Abdomen: Bowel sounds normal, soft, no tenderness, no masses, no pulsatile masses. [] Skin: Warm, dry, no erythema, no rash. [] Back: No tenderness, no CVA tenderness. [] Extremities: No tenderness, no cyanosis, no clubbing, ROM intact, no edema. [] Neurologic: Confused, left-sided weakness at baseline Psychologic: Affect normal, judgement normal, mood normal. [] Current Patient Data: Labs: Laboratory Tests Test 06/18/20 08:42 White Blood Count 9.3 x10^3/uL Red Blood Count 4.41 x10^6/uL Hemoglobin 12.0 g/dL Hematocrit 34.6 % Mean Corpuscular Volume 79 fL Mean Corpuscular Hemoglobin 27 pg Mean Corpuscular Hemoglobin Concent 35 g/dL Red Cell Distribution Width 14.5 % Platelet Count 340 x10^3/uL Neutrophils (%) (Auto) 71 % Lymphocytes (%) (Auto) 20 % Monocytes (%) (Auto) 7 % Eosinophils (%) (Auto) 1 % Basophils (%) (Auto) 0 % Neutrophils # (Auto) 6.6 x10^3/uL Lymphocytes # (Auto) 1.9 x10^3/uL Monocytes # (Auto) 0.7 x10^3/uL Eosinophils # (Auto) 0.1 x10^3/uL Basophils # (Auto) 0.0 x10^3/uL Sodium Level 143 mmol/L Potassium Level 4.2 mmol/L Chloride Level 104 mmol/L Carbon Dioxide Level 28 mmol/L Anion Gap 11 Blood Urea Nitrogen 11 mg/dL Creatinine 0.7 mg/dL Estimated GFR (Cockcroft-Gault) 104.0 BUN/Creatinine Ratio 16 Glucose Level 264 mg/dL Calcium Level 9.1 mg/dL Magnesium Level 1.5 mg/dL Total Bilirubin 0.5 mg/dL Aspartate Amino Transf (AST/SGOT) 16 U/L Alanine Aminotransferase (ALT/SGPT) 28 U/L Alkaline Phosphatase 157 U/L Creatine Kinase 137 U/L Creatine Kinase MB (Mass) 0.8 ng/mL Creatine Kinase MB Relative Index 0.6 % Troponin I Quantitative < 0.017 ng/mL Total Protein 8.3 g/dL Albumin 3.8 g/dL Albumin/Globulin Ratio 0.8 Current Medications Medications (Trade) Dose Ordered Sig/Bud Route PRN Reason Start Time Stop Time Status Last Admin Dose Admin Sodium Chloride 1,000 ml @ 1,000 mls/hr 1X ONCE IV 06/18/20 08:00 06/18/20 08:59 DC 06/18/20 08:00 Levetiracetam 1000 mg/Dextrose 110 ml @ 440 mls/hr 1X ONCE IV 06/18/20 08:30 06/18/20 08:44 DC 06/18/20 08:49 Magnesium Sulfate 50 ml @ 25 mls/hr 1X ONCE IV 06/18/20 11:00 06/18/20 12:59 DC 06/18/20 11:48 Vital Signs: Vital Signs Date Time Temp Pulse Resp B/P (MAP) Pulse Ox O2 Delivery O2 Flow Rate FiO2 06/18/20 07:54 97.8 101 18 139/64 (89) 100 Nasal Cannula 2.0 97.8 EKG: EKG: EKG was done at 950, heart rate 99 bpm, sinus rhythm, no ST segment elevation. Radiology/Procedures: Radiology/Procedures: [][facility] [address] [place] [address] IMAGING REPORT Signed PATIENT: BEBETO TOVAR ACCOUNT: [id number] : 1960 LOCATION: ER AGE: 60 SEX: F EXAM STATUS: REG ER ORD. PHYSICIAN: DE CRAWFORD DO REASON: seizure, hx of stroke PROCEDURE: CT HEAD WO CONTRAST EXAM: Head CT without contrast. HISTORY: Seizure. Stroke. TECHNIQUE: Computed tomographic images of the head were obtained without contrast. *One or more of the following individualized dose reduction techniques were utilized for this examination: 1. Automated exposure control. 2. Adjustment of the mA and/or kV according to patient size. 3. Use of iterative reconstruction technique. COMPARISON: 01/12/2009. FINDINGS: There is a region of decreased attenuation within the right parietal and posterior temporal lobes which contains internal areas of cortical gyriform hyperdensity likely due to a chronic infarct with laminar necrosis. There is no mass effect or midline shift. There is no hydrocephalus. The [place]-white matter differentiation pattern is intact. The orbits and visualized paranasal sinuses m astoid air cells are unremarkable. There is no suspicious calvarial lesion. IMPRESSION: Suspected chronic infarct with superimposed cortical gyriform hyperdensity due to laminar necrosis within the right parietal and posterior temporal lobes. Given the presence of hyperdensity within this region and absence of prior studies to confirm stability, the possibility of a late subacute infarct with superimposed hemorrhagic transformation is not completely excluded. Short-term CT or MRI follow-up is recommended. Findings were discussed with Dr. Crawford at 1040 hours on 06/18/2020. Electronically signed by: Liza Armenta MD (06/18/2020 10:42 AM) [id number] DICTATED and SIGNED BY: LIZA ARMENTA MD DATE: 06/18/20 [id number] 0 [facility] [address] [place] [address] IMAGING REPORT Signed PATIENT: BEBETO TOVAR ACCOUNT: [id number] : 1960 LOCATION: ER AGE: 60 SEX: F EXAM STATUS: REG ER ORD. PHYSICIAN: DE CRAWFORD DO REASON: left shoulder pain, unable to move lt arm after seizure this am PROCEDURE: SHOULDER 2+V LEFT Three-view left shoulder study Clinical indications: Left shoulder pain. Unable to move left arm after seizure this exam. FINDINGS: No acute fracture or dislocation or lytic process is seen. No AC joint separation is seen. IMPRESSION: No acute osseous abnormality. Electronically signed by: Triston Fermin MD (06/18/2020 10:37 AM) [id number] DICTATED and SIGNED BY: TRISTON FERMIN MD DATE: 06/18/20 [id number] 0 [facility] [address] [place] [address] IMAGING REPORT Signed PATIENT: BEBETO TOVAR ACCOUNT: [id number] : 1960 LOCATION: ER AGE: 60 SEX: F EXAM STATUS: REG ER ORD. PHYSICIAN: DE CRAWFORD DO REASON: LEFT HIP PAIN, PELVIC PAIN PROCEDURE: HIP LEFT 2V WITH PELVIS EXAM: Pelvis and left hip, 3 views. HISTORY: Pain. COMPARISON: None. FINDINGS: A frontal view of the pelvis and 2 views left hip are obtained. There is no acute fracture, dislocation or subluxation. There is decreased femoral head neck offset, a finding which can be seen with chronic hip impingement. IMPRESSION: 1. No acute osseous finding. 2. Findings suggesting a component of chronic left hip impingement. Electronically signed by: Liza Armenta MD (06/18/2020 1:49 PM) [id number] DICTATED and SIGNED BY: LIZA ARMENTA MD DATE: 06/18/20 [id number] 0 Course & Med Decision Making: Course & Med Decision Making Pertinent Labs and Imaging studies reviewed. (See chart for details) Patient'S family requested THIS physician to transfer the patient to [facility] for evaluation by her neurologist. This physician contacted transfer center, discussed with [place] triage nurse at . The images here were clouded to . She discussed the case with patient neurologist, Dr. Soto, who personally looked at the CT SCAN IMAGES THAT WERE CLOUDED TO today from here. There is no change compared to the recent MRI that she had there at . Dr. Soto recommended to discharge patient home, increase her KEPPRA TO 1000 MG BID. will not accept patient for transfer there today because there is no medical indication for it. If patient need to be admitted for observation than patient can be admitted at [place]. Patient was still not back to her baseline per her family, will admit her for obvervation, discussed with Dr. Umanzor who agreed to admit patient here. Dragon Disclaimer: Dragnora Disclaimer: This electronic medical record was generated, in whole or in part, using a voice recognition dictation system. Departure Departure Impression: Primary Impression: Seizure Disposition: ADMITTED INPATIENT Admitting Physician: JORDY (Dr. Umanzor) Condition: STABLE Referrals: SAULO VELA MD (PCP) DE CRAWFORD DO Jun 18, 2020 08:03
[2020-06-18] MEDS ORDERED: levETIRAcetam 1,000 MG in IV DEXTROSE 5% 100ML 100 ML IV ONE (08:30)
[2020-06-18 08:53] LABS: BASO % 0 % (0-3); EOS # 0.1 x10^3/uL (0.0-0.7); EOS % 1 % (0-3); HEMATOCRIT 34.6 % (36.0-47.0); LYMPH # 1.9 x10^3/uL (1.0-4.8); LYMPH % 20 % (24-48); MEAN CORPUSCULAR HEMOGLOBIN 27 pg (25-35); MEAN CORPUSCULAR HGB CONC 35 g/dL (31-37); MEAN CORPUSCULAR VOLUME 79 fL (79-100); MONO # 0.7 x10^3/uL (0.0-1.1); MONO % 7 % (0-9); NEUT # 6.6 x10^3/uL (1.8-7.7); NEUT % 71 % (31-73); PLATELET COUNT 340 x10^3/uL (140-400); RED BLOOD COUNT 4.41 x10^6/uL (3.50-5.40); RED CELL DISTRIBUTION WIDTH 14.5 % (11.5-14.5); WHITE BLOOD COUNT 9.3 x10^3/uL (4.0-11.0)
[2020-06-18 09:05] LABS: CALCIUM 9.1 mg/dL (8.5-10.1); CREATININE 0.7 mg/dL (0.6-1.0); POTASSIUM 4.2 mmol/L (3.5-5.1)
[2020-06-18 09:11] LABS: ALBUMIN 3.8 g/dL (3.4-5.0); ALBUMIN/GLOBULIN RATIO 0.8 (1.0-1.7); MAGNESIUM 1.5 mg/dL (1.8-2.4); TOTAL BILIRUBIN 0.5 mg/dL (0.2-1.0); TOTAL PROTEIN 8.3 g/dL (6.4-8.2)
--- NOTE | 2020-06-18 10:39 | RAD ---
Three-view left shoulder study Clinical indications: Left shoulder pain. Unable to move left arm after seizure this exam. FINDINGS: No acute fracture or dislocation or lytic process is seen. No AC joint separation is seen. IMPRESSION: No acute osseous abnormality. Electronically signed by: Edy Fermin MD (06/18/2020 10:37 AM) [id number]
--- NOTE | 2020-06-18 10:45 | RAD ---
EXAM: Head CT without contrast. HISTORY: Seizure. Stroke. TECHNIQUE: Computed tomographic images of the head were obtained without contrast. *One or more of the following individualized dose reduction techniques were utilized for this examina tion: 1. Automated exposure control. 2. Adjustment of the mA and/or kV according to patient size. 3. Use of iterative reconstruction technique. COMPARISON: 01/12/2009. FINDINGS: There is a region of decreased attenuation within the right parietal and posterior temporal lobes which contains internal areas of cortical gyriform hyperdensity likely due to a chronic infarc t with laminar necrosis. There is no mass effect or midline shift. There is no hydrocephalus. The gra y-white matter differentiation pattern is intact. The orbits and visualized paranasal sinuses mastoid air cells are unremarkable. There is no suspicious calvarial lesion. IMPRESSION: Suspected chronic infarct with superimposed cortical gyriform hyperdensity due to laminar necrosis wi thin the right parietal and posterior temporal lobes. Given the presence of hyperdensity within this region and absence of prior studies to confirm stability, the possibility of a late subacute infarct with superimposed hemorrhagic transformation is not completely excluded. Short-term CT or MRI follow- up is recommended. Findings were discussed with Dr. Houser at 1040 hours on 06/18/2020. Electronically signed by: Liza Hamlni MD (06/18/2020 10:42 AM) [id number]
[2020-06-18] MEDS ORDERED: MAGNESIUM SULFATE 2GM 50 ML IV ONE (11:00)
--- NOTE | 2020-06-18 13:51 | RAD ---
EXAM: Pelvis and left hip, 3 views. HISTORY: Pain. COMPARISON: None. FINDINGS: A frontal view of the pelvis and 2 views left hip are obtained. There is no acute fracture, dislocation or subluxation. There is decreased femoral head neck offset, a finding which can be seen with chronic hip impingement. IMPRESSION: 1. No acute osseous finding. 2. Findings suggesting a component of chronic left hip impingement. Electronically signed by: Liza Hamlin MD (06/18/2020 1:49 PM) [id number]
[2020-06-18 17:27] VITALS: BP 136/79
[2020-06-18] MEDS ORDERED: LIPITOR80 MG PO (17:29)
[2020-06-18] MEDS ORDERED: EZET10TA20 PO (17:29)
[2020-06-18] MEDS ORDERED: LEVE750T41 PO (17:29)
[2020-06-18] MEDS ORDERED: CARV25TA PO (17:29)
--- NOTE | 2020-06-18 18:12 | EKG ---
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
--- NOTE | 2020-06-18 18:34 | EKG ---
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
[2020-06-18 19:00] VITALS: BP 118/56
[2020-06-18] MEDS: levETIRAcetam 500 MG TABLET PO SCH (21:55)
[2020-06-18 22:48] VITALS: BP 139/65
[2020-06-18 23:18] VITALS: BP 126/59
[2020-06-19 03:18] VITALS: BP 132/63
[2020-06-19 07:00] VITALS: BP 136/71
--- NOTE | 2020-06-19 08:53 | PDOC ---
PROGRESS NOTES Date of Service: DATE: 06/19/20 TIME: 08:53 Chief Complaint Chief Complaint Impression: Seizure due to missed dose of meds per patient MORBID OBESITY Suspected chronic infarct with superimposed cortical gyriform hyperdensity due to laminar necrosis within the right parietal and posterior temporal lobes. chronic left hip impingement. plan ADMITTED tele neurology consult seizure precautions home meds D/W RN History of Present Illness History of Present Illness 60 year old female who was brought here by EMS from home due to seizure activity. 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 HAD NOT FILLED HER Keppra 750 mg BID. Her family says her last seizure was last year. Patient was found to have a seizure yesterday in her bed, EMS was called, patient was actively seizing when EMS gave 5 mg of Versed IM and brought her here for evaluation. There was no evidence of head injury. Patient is complaining of left shoulder pain and left hip pain Review of Systems: Constitutional: Denies fever or chills. [] Eyes: Denies change in visual acuity. [] HENT: Denies nasal congestion or sore throat. [] Respiratory: Denies cough or shortness of breath. [] Cardiovascular: Denies chest pain or edema. [] GI: Denies abdominal pain, nausea, vomiting, bloody stools or diarrhea. [] : Denies dysuria. [] Musculoskeletal: Denies back pain, positive for left hip pain, left shoulder pain Integument: Denies rash. [] Neurologic: Denies headache, focal weakness or sensory changes. Positive for seizure activity. Endocrine: Denies polyuria or polydipsia. [] Lymphatic: Denies swollen glands. [] Psychiatric: Denies depression or anxiety. [] Vitals Vitals Vital Signs Date Time Temp Pulse Resp B/P (MAP) Pulse Ox O2 Delivery O2 Flow Rate FiO2 06/19/20 07:00 98.0 84 18 136/71 (92) 99 98.0 06/19/20 03:18 Room Air 06/18/20 07:54 2.0 Physical Exam Physical Exam Constitutional: Well developed, well nourished, HENT: Normocephalic, atraumatic, bilateral external ears normal, oropharynx moist, no oral exudates, nose normal. [] Eyes: PERRLA, EOMI, conjunctiva normal, no discharge. [] Neck: Normal range of motion, no tenderness, supple, no stridor. [] Cardiovascular:Heart rate regular rhythm, no murmur [] Lungs & Thorax: Bilateral breath sounds clear to auscultation [] Abdomen: Bowel sounds normal, soft, no tenderness, no masses, no pulsatile masses. [] Skin: Warm, dry, no erythema, no rash. [] Back: No tenderness, no CVA tenderness. [] Extremities: No tenderness, no cyanosis, no clubbing, ROM intact, no edema. [] Neurologic: Confused, left-sided weakness at baseline Psychologic: Affect normal, judgment normal, mood normal. [] General: Alert, Oriented X3, Cooperative, No acute distress Heart: Regular rate, Normal S1, Normal S2, No murmurs Lungs: Clear Abdomen: Normal bowel sounds, Soft, No tenderness Extremities: No cyanosis, No edema Skin: No significant lesion Labs LABS EXAM: Pelvis and left hip, 3 views. HISTORY: Pain. COMPARISON: None. FINDINGS: A frontal view of the pelvis and 2 views left hip are obtained. There is no acute fracture, dislocation or subluxation. There is decreased femoral head neck offset, a finding which can be seen with chronic hip impingement. IMPRESSION: 1. No acute osseous finding. 2. Findings suggesting a component of chronic left hip impingement. Electronically signed by: Liza Armenta MD (06/18/2020 1:49 PM) [id number] DICTATED and SIGNED BY: LIZA ARMENTA MD DATE: 06/18/20 [id number] EXAM: Pelvis and left hip, 3 views. HISTORY: Pain. COMPARISON: None. FINDINGS: A frontal view of the pelvis and 2 views left hip are obtained. There is no acute fracture, dislocation or subluxation. There is decreased femoral head neck offset, a finding which can be seen with chronic hip impingement. IMPRESSION: 1. No acute osseous finding. 2. Findings suggesting a component of chronic left hip impingement. Electronically signed by: Liza Armenta MD (06/18/2020 1:49 PM) [id number] DICTATED and SIGNED BY: LIZA ARMENTA MD DATE: 06/18/20 [id number] EXAM: Head CT without contrast. HISTORY: Seizure. Stroke. TECHNIQUE: Computed tomographic images of the head were obtained without contrast. *One or more of the following individualized dose reduction techniques were utilized for this examination: 1. Automated exposure control. 2. Adjustment of the mA and/or kV according to patient size. 3. Use of iterative reconstruction technique. COMPARISON: 01/12/2009. FINDINGS: There is a region of decreased attenuation within the right parietal and posterior temporal lobes which contains internal areas of cortical gyriform hyperdensity likely due to a chronic infarct with laminar necrosis. There is no mass effect or midline shift. There is no hydrocephalus. The [place]-white matter differentiation pattern is intact. The orbits and visualized paranasal sinuses mastoid air cells are unremarkable. There is no suspicious calvarial lesion. IMPRESSION: Suspected chronic infarct with superimposed cortical gyriform hyperdensity due to laminar necrosis within the right parietal and posterior temporal lobes. Given the presence of hyperdensity within this region and absence of prior studies to confirm stability, the possibility of a late subacute infarct with superimposed hemorrhagic transformation is not completely excluded. Short-term CT or MRI follow-up is recommended. Findings were discussed with Dr. Houser at 1040 hours on 06/18/2020. Electronically signed by: Liza Armenta MD (06/18/2020 10:42 AM) [id number] DICTATED and SIGNED BY: LIZA ARMENTA MD DATE: 06/18/20 [id number] Assessment and Plan Assessmemt and Plan Problems Medical Problems: (1) Seizure Status: Acute Comment Review of Relevant I have reviewed the following items emery (where applicable) has been applied. Labs Laboratory Tests Test 06/18/20 08:42 White Blood Count 9.3 x10^3/uL (4.0-11.0) Red Blood Count 4.41 x10^6/uL (3.50-5.40) Hemoglobin 12.0 g/dL (12.0-15.5) Hematocrit 34.6 % (36.0-47.0) Mean Corpuscular Volume 79 fL (79-100) Mean Corpuscular Hemoglobin 27 pg (25-35) Mean Corpuscular Hemoglobin Concent 35 g/dL (31-37) Red Cell Distribution Width 14.5 % (11.5-14.5) Platelet Count 340 x10^3/uL (140-400) Neutrophils (%) (Auto) 71 % (31-73) Lymphocytes (%) (Auto) 20 % (24-48) Monocytes (%) (Auto) 7 % (0-9) Eosinophils (%) (Auto) 1 % (0-3) Basophils (%) (Auto) 0 % (0-3) Neutrophils # (Auto) 6.6 x10^3/uL (1.8-7.7) Lymphocytes # (Auto) 1.9 x10^3/uL (1.0-4.8) Monocytes # (Auto) 0.7 x10^3/uL (0.0-1.1) Eosinophils # (Auto) 0.1 x10^3/uL (0.0-0.7) Basophils # (Auto) 0.0 x10^3/uL (0.0-0.2) Sodium Level 143 mmol/L (136-145) Potassium Level 4.2 mmol/L (3.5-5.1) Chloride Level 104 mmol/L (98-107) Carbon Dioxide Level 28 mmol/L (21-32) Anion Gap 11 (6-14) Blood Urea Nitrogen 11 mg/dL (7-20) Creatinine 0.7 mg/dL (0.6-1.0) Estimated GFR (Cockcroft-Gault) 104.0 BUN/Creatinine Ratio 16 (6-20) Glucose Level 264 mg/dL (70-99) Calcium Level 9.1 mg/dL (8.5-10.1) Magnesium Level 1.5 mg/dL (1.8-2.4) Total Bilirubin 0.5 mg/dL (0.2-1.0) Aspartate Amino Transf (AST/SGOT) 16 U/L (15-37) Alanine Aminotransferase (ALT/SGPT) 28 U/L (14-59) Alkaline Phosphatase 157 U/L (46-116) Creatine Kinase 137 U/L (26-192) Creatine Kinase MB (Mass) 0.8 ng/mL (0.0-3.6) Creatine Kinase MB Relative Index 0.6 % (0-4) Troponin I Quantitative < 0.017 ng/mL (0.000-0.055) Total Protein 8.3 g/dL (6.4-8.2) Albumin 3.8 g/dL (3.4-5.0) Albumin/Globulin Ratio 0.8 (1.0-1.7) Medications Current Medications Sodium Chloride 1,000 ml @ 1,000 mls/hr 1X ONCE IV Last administered on 06/18/20at 08:00; Start 06/18/20 at 08:00; Stop 06/18/20 at 08:59; Status DC Levetiracetam 1000 mg/Dextrose 110 ml @ 440 mls/hr 1X ONCE IV Last administered on 06/18/20at 08:49; Start 06/18/20 at 08:30; Stop 06/18/20 at 08:44; Status DC Magnesium Sulfate 50 ml @ 25 mls/hr 1X ONCE IV Last administered on 06/18/20at 11:48; Start 06/18/20 at 11:00; Stop 06/18/20 at 12:59; Status DC Levetiracetam (Keppra) 750 mg BID PO Last administered on 06/18/20at 21:55; Start 06/18/20 at 21:00 Active Scripts Active Reported Zetia (Ezetimibe) 10 Mg Tablet 10 Mg PO DAILY Lipitor (Atorvastatin Calcium) 80 Mg Tablet 80 Mg PO HS Coreg (Carvedilol) 25 Mg Tablet 25 Mg PO BIDWMEALS Keppra (Levetiracetam) 750 Mg Tablet 1 Tab PO BID 30 Days Levothyroxine Sodium 100 Mcg Tablet 1 Tab PO DAILY Vitals/I & O Vital Sign - Last 24 Hours 06/18/20 06/18/20 06/18/20 06/18/20 13:00 13:30 14:00 14:30 Pulse 88 102 96 96 Resp 17 21 18 20 Pulse Ox 98 99 97 96 06/18/20 06/18/20 06/18/20 06/18/20 15:00 15:30 16:00 16:30 Pulse 100 92 98 100 Resp 18 16 16 22 Pulse Ox 96 96 96 96 06/18/20 06/18/20 06/18/20 06/18/20 17:27 18:10 19:00 22:18 Temp 98.7 98.0 98.7 98.0 Pulse 97 92 Resp 18 18 B/P (MAP) 136/79 (98) 118/56 (76) Pulse Ox 99 98 O2 Delivery Room Air Room Air Room Air Room Air 06/18/20 06/19/20 06/19/20 23:18 03:18 07:00 Temp 98.5 98.1 98.0 98.5 98.1 98.0 Pulse 87 81 84 Resp 18 18 18 B/P (MAP) 126/59 (81) 132/63 (86) 136/71 (92) Pulse Ox 97 98 99 O2 Delivery Room Air Room Air Intake and Output 06/18/20 06/18/20 06/19/20 15:00 23:00 07:00 Intake Total 50 ml 0 ml Output Total 250 ml Balance 50 ml -250 ml Justicifation of Admission Dx: Justifications for Admission: Justification of Admission Dx: Yes Comments: seizure ELSY CLAUDIO MD Jun 19, 2020 08:53
[2020-06-19] MEDS: levETIRAcetam 500 MG TABLET PO SCH (09:03)
[2020-06-19] MEDS ORDERED: EZETIMIBE 10 MG TABLET. PO SCH (10:00)
[2020-06-19] MEDS ORDERED: CARVEDILOL 12.5 MG TABLET. PO SCH (10:00)
[2020-06-19] MEDS ORDERED: LEVOTHYROXINE 100 MCG TABLET PO SCH (10:00)
[2020-06-19 11:00] VITALS: BP 134/92
--- NOTE | 2020-06-19 11:31 | NUR ---
[facility] following for discharge planning. Spoke with RN and reviewed chart. Pt from home with family. Pt requesting discharge to home. Pt OBS. Pt on room air and JR Jeffrey. Pt on a cardiac diet. PT/OT to evaluate. Discharge plan is home, self-care. [facility] following. Addendum: 06/19/20 at 1443 by KYMBERLY RIGGINS OT requesting outpatient therapy. [facility] met with pt and family. Pt agreeable to follow up at [facility] for out-patient PT/OT. Script obtained and faxed to out-patient ([id number]). Pt provided with phone number for out-patient to schedule appointment ([phone]). Copy of script on chart. Script given to pt. Pt to discharge home today, 06/19. No further [facility] needs at this time. Addendum: 06/20/20 at 1032 by KYMBERLY RIGGINS Spoke with Funmilayo in out-patient this morning to confirm orders and clinicals received. No further SW needs at this time.
[2020-06-19] MEDS ORDERED: MAG HYDROX/ALUMINUM HYD/SIMETH 30 ML ORAL.SUSP PO PRN (12:00)
[2020-06-19] MEDS ORDERED: DOCUSATE SODIUM 100 MG CAPSULE. PO PRN (12:00)
[2020-06-19] MEDS ORDERED: LORazepam 0.5 MG TABLET PO PRN (12:00)
[2020-06-19] MEDS ORDERED: guaiFENesin ORAL 200 MG/10 ML LIQUID. PO PRN (12:00)
[2020-06-19] MEDS ORDERED: ALBUTEROL SULFATE 2.5 MG/3 ML NEBU. NEB PRN (12:00)
[2020-06-19] MEDS ORDERED: ONDANSETRON PF 4 MG/2 ML VIAL. IV PRN (12:00)
[2020-06-19] MEDS ORDERED: 0.9 % SODIUM CHLORIDE 10 ML DISP.SYRIN. IV PRN (12:00)
[2020-06-19] MEDS ORDERED: SODIUM PHOSPHATES 19/7GM 133 ML ENEMA. PR PRN (12:00)
[2020-06-19] MEDS ORDERED: ACETAMINOPHEN 325 MG TABLET. PO PRN (12:00)
[2020-06-19] MEDS ORDERED: ACETAMINOPHEN 650 MG SUPP.RECT. PR PRN (12:00)
--- NOTE | 2020-06-19 13:13 | PDOC2 ---
NEUROLOGY CONSULT Date of Service DOS: DATE: 06/19/20 TIME: 13:04 History of Present Illness History of Present Illness The patient is a 60-year-old right-handed female brought in by emergency medical services yesterday morning. She had a seizure. We now understand that the patient missed some doses of her medication. She usually follows at and takes Keppra 750 mg BID. Her family says her last seizure was last year. Govind crawley has had a stroke causing left hemiparesis. She lives with one of her daughters. The patient has had no subsequent seizures. It took her a while to get out of her postictal state. Dr. Houser contacted her neurologist, Dr. Soto who felt that CT changes were no different from her recent MRI done at and recommended to discharge patient home, increase her levetiracetam to 1000 mg twice a day. He declined transfer, but as the family was very concerned that the patient was not back to her baseline, the patient was admitted yesterday. Family says the patient is now back to her baseline and are ready to take her home. Past Medical History Cardiovascular: HTN, Hyperlipidemia CENTRAL NERVOUS SYSTEM: CVA, Seizure Heme/Onc: Sickle cell trait Musculoskeletal: Osteoarthritis Infectious disease: HIV Endocrine: Diabetes, Hypothyroidism Past Surgical History Past Surgical History: Tubal Ligation, Other (Right knee) Family History Family History: No pertinent hx (Negative for seizure) Social History Social History , no alcohol or tobacco, lives with a daughter Current Medications Current Medications Current Medications Sodium Chloride 1,000 ml @ 1,000 mls/hr 1X ONCE IV Last administered on 06/18/20at 08:00; Start 06/18/20 at 08:00; Stop 06/18/20 at 08:59; Status DC Levetiracetam 1000 mg/Dextrose 110 ml @ 440 mls/hr 1X ONCE IV Last a dministered on 06/18/20at 08:49; Start 06/18/20 at 08:30; Stop 06/18/20 at 08:44; Status DC Magnesium Sulfate 50 ml @ 25 mls/hr 1X ONCE IV Last administered on 06/18/20at 11:48; Start 06/18/20 at 11:00; Stop 06/18/20 at 12:59; Status DC Levetiracetam (Keppra) 750 mg BID PO Last administered on 06/19/20at 09:03; Start 06/18/20 at 21:00 EZETIMIBE (Zetia) 10 mg DAILY PO Last administered on 06/19/20at 12:03; Start 06/19/20 at 10:00 Levothyroxine Sodium (Synthroid) 100 mcg DAILY06 PO Last administered on 05/30 04/20at 10:33; Start 06/19/20 at 10:00 Atorvastatin Calcium (Lipitor) 80 mg QHS PO ; Start 06/19/20 at 21:00 Carvedilol (Coreg) 25 mg BIDWMEALS PO Last administered on 06/19/20at 12:03; Start 06/19/20 at 10:00 Sodium Chloride (Normal Saline Flush) 3 ml QSHIFT PRN IV AFTER MEDS AND BLOOD DRAWS; Start 06/19/20 at 12:00 Ondansetron HCl (Zofran) 4 mg PRN Q4HRS PRN IV NAUSEA/VOMITING; Start 06/19/20 at 12:00 Acetaminophen (Tylenol) 650 mg PRN Q4HRS PRN PO TEMP OVER 100.4F OR MILD PAIN; Start 06/19/20 at 12:00 Acetaminophen (Tylenol Supp) 650 mg PRN Q4HRS PRN TX TEMP OVER 100.4F OR MILD PAIN; Start 06/19/20 at 12:00 Al Hydroxide/Mg Hydroxide (Mylanta Plus Xs) 30 ml PRN DAILY PRN PO HEARTBURN / GAS; Start 06/19/20 at 12:00 Sodium Monofluorophosphate (Fleet Adult) 133 ml PRN DAILY PRN TX CONSTIPATION; Start 06/19/20 at 12:00 Docusate Sodium (Colace) 100 mg PRN BID PRN PO HARD STOOLS; Start 06/19/20 at 12:00 Albuterol Sulfate (Ventolin Neb Soln) 2.5 mg PRN Q4HRS PRN NEB SHORTNESS OF BREATH; Start 06/19/20 at 12:00 Guaifenesin (Robitussin) 200 mg PRN Q4HRS PRN PO COUGH; Start 06/19/20 at 12:00 Lorazepam (Ativan) 0.5 mg PRN Q4HRS PRN PO ANXIETY / AGITATION; Start 06/19/20 at 12:00 Lorazepam (Ativan Inj) 2 mg PRN Q4HRS PRN IV ANXIETY / AGITATION; Start 06/19/20 at 12:00 Enoxaparin Sodium (Lovenox 40mg Syringe) 40 mg Q24H SQ ; Start 06/19/20 at 14:00 Active Scripts Active Reported Zetia (Ezetimibe) 10 Mg Tablet 10 Mg PO DAILY Lipitor (Atorvastatin Calcium) 80 Mg Tablet 80 Mg PO HS Coreg (Carvedilol) 25 Mg Tablet 25 Mg PO BIDWMEALS Keppra (Levetiracetam) 750 Mg Tablet 1 Tab PO BID 30 Days Levothyroxine Sodium 100 Mcg Tablet 1 Tab PO DAILY Allergies Allergies: Coded Allergies: No Known Drug Allergies (Unverified , 05/03/16) ROS Review of System Negative for fever, chills, weight loss, shortness of breath, chest pain, indigestion, hematochezia, melena, and dysuria. Full 14-point review of systems is negative. Physical Exam Physical Examination General: Well-developed, well-nourished black female in no acute distress HEENT: Normocephalic andatraumatic. Temporal arteriespulsatile and nontender. Neck: Supple without bruit, no meningismus Musculoskeletal: Stability:see neurologic. Gait exam:see neurologic. Tone:see neurologic.Strength:see neurologic. Neurological: Mental Status:intact, orientation, memory, attention span/concentration, language, fund of knowledge normal. Cranial Nerves:Pupils equal and reactive to light, extraocular movements areintact, visual noel are full to confrontation. Facial sensation is normal. There is left central facial weakness. Vestibulo-ocular reflex is intact. Palate elevates and tongue pr otrudes in midline. All other cranial related problems are negative except as mentioned before.Reflexes:2+ and symmetric with flexor plantar responses. Motor:4/5 left hemiparesis, 5/5 right-sided strength with normal tone and bulk. Coordination:Finger-nose finger and [id number] testing are normal. Rapid alternating movements and fine finger movements are intact. Gait:Not tested. Sensory:Normal pinprick, vibration, light touch, proprioception. Vitals VITALS Vital Signs Date Time Temp Pulse Resp B/P (MAP) Pulse Ox O2 Delivery O2 Flow Rate FiO2 06/19/20 12:03 97 134/92 06/19/20 11:00 97.9 18 99 97.9 06/19/20 08:00 Room Air 06/18/20 07:54 2.0 Labs Labs Laboratory Tests Test 06/18/20 08:42 White Blood Count 9.3 x10^3/uL (4.0-11.0) Red Blood Count 4.41 x10^6/uL (3.50-5.40) Hemoglobin 12.0 g/dL (12.0-15.5) Hematocrit 34.6 % (36.0-47.0) Mean Corpuscular Volume 79 fL (79-100) Mean Corpuscular Hemoglobin 27 pg (25-35) Mean Corpuscular Hemoglobin Concent 35 g/dL (31-37) Red Cell Distribution Width 14.5 % (11.5-14.5) Platelet Count 340 x10^3/uL (140-400) Neutrophils (%) (Auto) 71 % (31-73) Lymphocytes (%) (Auto) 20 % (24-48) Monocytes (%) (Auto) 7 % (0-9) Eosinophils (%) (Auto) 1 % (0-3) Basophils (%) (Auto) 0 % (0-3) Neutrophils # (Auto) 6.6 x10^3/uL (1.8-7.7) Lymphocytes # (Auto) 1.9 x10^3/uL (1.0-4.8) Monocytes # (Auto) 0.7 x10^3/uL (0.0-1.1) Eosinophils # (Auto) 0.1 x10^3/uL (0.0-0.7) Basophils # (Auto) 0.0 x10^3/uL (0.0-0.2) Sodium Level 143 mmol/L (136-145) Potassium Level 4.2 mmol/L (3.5-5.1) Chloride Level 104 mmol/L (98-107) Carbon Dioxide Level 28 mmol/L (21-32) Anion Gap 11 (6-14) Blood Urea Nitrogen 11 mg/dL (7-20) Creatinine 0.7 mg/dL (0.6-1.0) Estimated GFR (Cockcroft-Gault) 104.0 BUN/Creatinine Ratio 16 (6-20) Glucose Level 264 mg/dL (70-99) Calcium Level 9.1 mg/dL (8.5-10.1) Magnesium Level 1.5 mg/dL (1.8-2.4) Total Bilirubin 0.5 mg/dL (0.2-1.0) Aspartate Amino Transf (AST/SGOT) 16 U/L (15-37) Alanine Aminotransferase (ALT/SGPT) 28 U/L (14-59) Alkaline Phosphatase 157 U/L (46-116) Creatine Kinase 137 U/L (26-192) Creatine Kinase MB (Mass) 0.8 ng/mL (0.0-3.6) Creatine Kinase MB Relative Index 0.6 % (0-4) Troponin I Quantitative < 0.017 ng/mL (0.000-0.055) Total Protein 8.3 g/dL (6.4-8.2) Albumin 3.8 g/dL (3.4-5.0) Albumin/Globulin Ratio 0.8 (1.0-1.7) Images Images Head CT without contrast. HISTORY: Seizure. Stroke. TECHNIQUE: Computed tomographic images of the head were obtained without contrast. *One or more of the following individualized dose reduction techniques were utilized for this examination: 1. Automated exposure control. 2. Adjustment of the mA and/or kV according to patient size. 3. Use of iterative reconstruction technique. COMPARISON: 01/12/2009. FINDINGS: There is a region of decreased attenuation within the right parietal and posterior temporal lobes which contains internal areas of cortical gyriform hyperdensity likely due to a chronic infarct with laminar necrosis. There is no mass effect or midline shift. There is no hydrocephalus. The [place]-white matter differentiation pattern is intact. The orbits and visualized paranasal sinuses mastoid air cells are unremarkable. There is no suspicious calvarial lesion. IMPRESSION: Suspected chronic infarct with superimposed cortical gyriform hyperdensity due to laminar necrosis within the right parietal and posterior temporal lobes. Given the presence of hyperdensity within this region and absence of prior studies to confirm stability, the possibility of a late subacute infarct with superimposed hemorrhagic transformation is not completely excluded. Short-term CT or MRI follow-up is recommended. Assessment/Plan Assessment/Plan Impression: Epilepsy, breakthrough seizure due to noncompliance Chronic right parietal temporal stroke, confirmed by her [facility] neurologist as being unchanged from recent MRI. Family agrees that she is back to her baseline. Recommendations: Okay for discharge Continue current dose of levetiracetam 750 mg twice a day, no need to increase it per the original instructions from her neurologist Follow-up with neurology Thank you for letting me help with the patient's care. PANCHITO PAZ MD Jun 19, 2020 13:13
--- NOTE | 2020-06-19 13:52 | HP ---
ADMIT DATE: 06/18/2020 CHIEF COMPLAINT: Seizure. HISTORY OF PRESENT ILLNESS: The patient is a pleasant 60-year-old female, who had a stroke a year or so ago. She normally goes to today. Since she had her stroke, she has been placed on Keppra 750 p.o. b.i.d. Apparently, this has been working, but today she did have a seizure. The daughter witnessed it. She called EMS. They gave her 5 mg of IM Versed. The patient is now being examined in the ER. PAST MEDICAL HISTORY: Seizure, stroke, hypertension, hypothyroidism, previous tobacco abuse. ALLERGIES: None. FAMILY HISTORY: Diabetes. SOCIAL HISTORY: She quit smoking. No drinking or drugs. MEDICATIONS: Reviewed. REVIEW OF SYSTEMS: Unable to obtain. The patient is postictal. PHYSICAL EXAMINATION: VITALS: Within normal limits and are stable. GENERAL: She is postictal. HEENT: Normal cephalic atraumatic, external auditory canals are patent EYES: Extraocular muscles are intact, pupils are equally round and reactive to light and accommodation MUSCULOSKELETAL: Well developed, well nourished, good range of motion ENDOCRINE: No thyromegaly was palpated LYMPHATICS: No cervical chain or axillary nodes were noted HEMATOPOIETIC: No bruising NECK: Supple, no JVD, no thyromegaly was noted. LUNGS: Clear to auscultation in all lung noel without rhonchi or wheezing. HEART: RRR, S1, S2 present. Peripheral pulses intact, no obvious murmurs were noted. ABDOMEN: Soft, nontender. Positive bowel sounds no organomegaly, normal bowel sounds. EXTREMITIES: Without any cyanosis, clubbing, or edema. Pedal pulses intact, Homans sign is negative. NEUROLOGIC: She is postictal. PSYCHIATRIC: She is postictal. SKIN: No ulcerations or rashes, good skin turgor, no jaundice. VASCULAR: Good capillary refill, neurovascular bundle appears to be intact. LABORATORY DATA: Electrolytes are normal. Troponin is 0. White count 9, hemoglobin 12, platelets 340. CT of the head shows a chronic infarct. The ER physician did call and sent the film to them, they compared to their old films and apparently no change from the previous CAT scan of the brain. Shoulder x-ray negative. Hip and pelvis x-rays negative. Although, she does have findings suggestive of a component of chronic left hip impingement. ASSESSMENT AND PLAN: Breakthrough seizure. The patient will be admitted. We will do seizure precautions. Suspect she will need increase in her Keppra. We will consult Dr. Alonso. Home meds. Deep venous thrombosis prophylaxis. Full code. We gave one dose of IV Keppra to re-bolus her. LILLY/LASHAWN/ARMIN DR: Cesar TID: [id number]
[2020-06-19] MEDS ORDERED: ENOXAPARIN 40 MG/0.4 ML SYRINGE. SQ SCH (14:00)
[2020-06-19 15:00] VITALS: BP 143/71
--- NOTE | 2020-06-19 15:35 | PDOC3 ---
Discharge Summary Date of Admission: Jun 18, 2020 Date of Discharge: Jun 19, 2020 Follow-Up: 3-5 days Admitting Diagnosis comment: hospital course========= History of Present Illness History of Present Illness 60 year old female who was brought here by EMS from home due to seizure activity. 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 HAD NOT FILLED HER Keppra 750 mg BID. Her family says her last seizure was last year. Patient was found to have a seizure yesterday in her bed, EMS was called, patient was actively seizing when EMS gave 5 mg of Versed IM and brought her here for evaluation. There was no evidence of head injury. Patient is complaining of left shoulder pain and left hip pain d/c condition good prognosis good out pt pt/ot d/c meds see mar see neurology [facility] soon as directed Chief Complaint Chief Complaint discharge dx Seizure due to missed dose of meds per patient MORBID OBESITY Suspected chronic infarct with superimposed cortical gyriform hyperdensity due to laminar necrosis within the right parietal and posterior temporal lobes. chronic left hip impingement. plan ADMITTED tele neurology consult seizure precautions home meds ok to d/c on keppra 750 mg po bid 4-22 d/c planning 34 min D/W RN History of Present Illness History of Present Illness 60 year old female who was brought here by EMS from home due to seizure activity. 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 HAD NOT FILLED HER Keppra 750 mg BID. Her family says her last seizure was last year. Patient was found to have a seizure yesterday in her bed, EMS was called, patient was actively seizing when EMS gave 5 mg of Versed IM and brought her here for evaluation. There was no evidence of head injury. Patient is complaining of left shoulder pain and left hip pain Review of Systems: Constitutional: Denies fever or chills. [] Eyes: Denies change in visual acuity. [] HENT: Denies nasal congestion or sore throat. [] Respiratory: Denies cough or shortness of breath. [] Cardiovascular: Denies chest pain or edema. [] GI: Denies abdominal pain, nausea, vomiting, bloody stools or diarrhea. [] : Denies dysuria. [] Musculoskeletal: Denies back pain, positive for left hip pain, left shoulder pain Integument: Denies rash. [] Neurologic: Denies headache, focal weakness or sensory changes. Positive for seizure activity. Endocrine: Denies polyuria or polydipsia. [] Lymphatic: Denies swollen glands. [] Psychiatric: Denies depression or anxiety. [] Vitals Vitals Vital Signs Date Time Temp Pulse Resp B/P (MAP) Pulse Ox O2 Delivery O2 Flow Rate FiO2 06/19/20 07:00 98.0 84 18 136/71 (92) 99 98.0 06/19/20 03:18 Room Air 06/18/20 07:54 2.0 Physical Exam Physical Exam Constitutional: Well developed, well nourished, HENT: Normocephalic, atraumatic, bilateral external ears normal, oropharynx moist, no oral exudates, nose normal. [] Eyes: PERRLA, EOMI, conjunctiva normal, no discharge. [] Neck: Normal range of motion, no tenderness, supple, no stridor. [] Cardiovascular:Heart rate regular rhythm, no murmur [] Lungs & Thorax: Bilateral breath sounds clear to auscultation [] Abdomen: Bowel sounds normal, soft, no tenderness, no masses, no pulsatile masses. [] Skin: Warm, dry, no erythema, no rash. [] Back: No tenderness, no CVA tenderness. [] Extremities: No tenderness, no cyanosis, no clubbing, ROM intact, no edema. [] Neurologic: Confused, left-sided weakness at baseline Psychologic: Affect normal, judgment normal, mood normal. [] General: Alert, Oriented X3, Cooperative, No acute distress Heart: Regular rate, Normal S1, Normal S2, No murmurs Lungs: Clear Abdomen: Normal bowel sounds, Soft, No tenderness Extremities: No cyanosis, No edema Skin: No significant lesion Labs LABS EXAM: Pelvis and left hip, 3 views. HISTORY: Pain. COMPARISON: None. FINDINGS: A frontal view of the pelvis and 2 views left hip are obtained. There is no acute fracture, dislocation or subluxation. There is decreased femoral head neck offset, a finding which can be seen with chronic hip impingement. IMPRESSION: 1. No acute osseous finding. 2. Findings suggesting a component of chronic left hip impingement. Electronically signed by: Liza rAmenta MD (06/18/2020 1:49 PM) [id number] DICTATED and SIGNED BY: LIZA ARMENTA MD DATE: 06/18/20 [id number] EXAM: Pelvis and left hip, 3 views. HISTORY: Pain. COMPARISON: None. FINDINGS: A frontal view of the pelvis and 2 views left hip are obtained. There is no acute fracture, dislocation or subluxation. There is decreased femoral head neck offset, a finding which can be seen with chronic hip impingement. IMPRESSION: 1. No acute osseous finding. 2. Findings suggesting a component of chronic left hip impingement. Electronically signed by: Liza Armenta MD (06/18/2020 1:49 PM) [id number] DICTATED and SIGNED BY: LIZA ARMENTA MD DATE: 06/18/20 [id number] EXAM: Head CT without contrast. HISTORY: Seizure. Stroke. TECHNIQUE: Computed tomographic images of the head were obtained without contrast. *One or more of the following individualized dose reduction techniques were utilized for this examination: 1. Automated exposure control. 2. Adjustment of the mA and/or kV according to patient size. 3. Use of iterative reconstruction technique. COMPARISON: 01/12/2009. FINDINGS: There is a region of decreased attenuation within the right parietal and posterior temporal lobes which contains internal areas of cortical gyriform hyperdensity likely due to a chronic infarct with laminar necrosis. There is no mass effect or midline shift. There is no hydrocephalus. The [place]-white matter differentiation pattern is intact. The orbits and visualized paranasal sinuses mastoid air cells are unremarkable. There is no suspicious calvarial lesion. IMPRESSION: Suspected chronic infarct with superimposed cortical gyriform hyperdensity due to laminar necrosis within the right parietal and posterior temporal lobes. Given the presence of hyperdensity within this region and absence of prior studies to confirm stability, the possibility of a late subacute infarct with superimposed hemorrhagic transformation is not completely excluded. Short-term CT or MRI follow-up is recommended. Findings were discussed with Dr. Houser at 1040 hours on 06/18/2020. Electronically signed by: Liza Armenta MD (06/18/2020 10:42 AM) [id number] DICTATED and SIGNED BY: LIZA ARMENTA MD DATE: 06/18/20 [id number] Assessment and Plan Assessmemt and Plan Problems Medical Problems: (1) Seizure Status: Acute Comment Review of Relevant I have reviewed the following items emery (where applicable) has been applied. Labs FINAL DIAGNOSIS Problems Medical Problems: (1) Seizure Status: Acute Brief Hospital Course Ms. Castaneda is a 60 old [sex] who presented with [seizure ] CONDITION AT DISCHARGE: Improved Discharge Medications Current Medications Sodium Chloride 1,000 ml @ 1,000 mls/hr 1X ONCE IV Last administered on 06/18/20at 08:00; Start 06/18/20 at 08:00; Stop 06/18/20 at 08:59; Status DC Levetiracetam 1000 mg/Dextrose 110 ml @ 440 mls/hr 1X ONCE IV Last administered on 06/18/20at 08:49; Start 06/18/20 at 08:30; Stop 06/18/20 at 08:44; Status DC Magnesium Sulfate 50 ml @ 25 mls/hr 1X ONCE IV Last administered on 06/18/20at 11:48; Start 06/18/20 at 11:00; Stop 06/18/20 at 12:59; Status DC Levetiracetam (Keppra) 750 mg BID PO Last administered on 06/19/20at 09:03; Start 06/18/20 at 21:00 EZETIMIBE (Zetia) 10 mg DAILY PO Last administered on 06/19/20at 12:03; Start 06/19/20 at 10:00 Levothyroxine Sodium (Synthroid) 100 mcg DAILY06 PO Last administered on 06/19/20at 10:33; Start 06/19/20 at 10:00 Atorvastatin Calcium (Lipitor) 80 mg QHS PO ; Start 06/19/20 at 21:00 Carvedilol (Coreg) 25 mg BIDWMEALS PO Last administered on 06/19/20at 12:03; Start 06/19/20 at 10:00 Sodium Chloride (Normal Saline Flush) 3 ml QSHIFT PRN IV AFTER MEDS AND BLOOD DRAWS; Start 06/19/20 at 12:00 Ondansetron HCl (Zofran) 4 mg PRN Q4HRS PRN IV NAUSEA/VOMITING; Start 06/19/20 at 12:00 Acetaminophen (Tylenol) 650 mg PRN Q4HRS PRN PO TEMP OVER 100.4F OR MILD PAIN; Start 06/19/20 at 12:00 Acetaminophen (Tylenol Supp) 650 mg PRN Q4HRS PRN LA TEMP OVER 100.4F OR MILD PAIN; Start 06/19/20 at 12:00 Al Hydroxide/Mg Hydroxide (Mylanta Plus Xs) 30 ml PRN DAILY PRN PO HEARTBURN / GAS; Start 06/19/20 at 12:00 Sodium Monofluorophosphate (Fleet Adult) 133 ml PRN DAILY PRN LA CONSTIPATION; Start 06/19/20 at 12:00 Docusate Sodium (Colace) 100 mg PRN BID PRN PO HARD STOOLS; Start 06/19/20 at 12:00 Albuterol Sulfate (Ventolin Neb Soln) 2.5 mg PRN Q4HRS PRN NEB SHORTNESS OF BREATH; Start 06/19/20 at 12:00 Guaifenesin (Robitussin) 200 mg PRN Q4HRS PRN PO COUGH; Start 06/19/20 at 12:00 Lorazepam (Ativan) 0.5 mg PRN Q4HRS PRN PO ANXIETY / AGITATION; Start 06/19/20 at 12:00 Lorazepam (Ativan Inj) 2 mg PRN Q4HRS PRN IV ANXIETY / AGITATION; Start 06/19/20 at 12:00 Enoxaparin Sodium (Lovenox 40mg Syringe) 40 mg Q24H SQ ; Start 06/19/20 at 14:00 Active Scripts Active Reported Zetia (Ezetimibe) 10 Mg Tablet 10 Mg PO DAILY Lipitor (Atorvastatin Calcium) 80 Mg Tablet 80 Mg PO HS Coreg (Carvedilol) 25 Mg Tablet 25 Mg PO BIDWMEALS Keppra (Levetiracetam) 750 Mg Tablet 1 Tab PO BID 30 Days Levothyroxine Sodium 100 Mcg Tablet 1 Tab PO DAILY Vital Signs Vital Signs Date Time Temp Pulse Resp B/P (MAP) Pulse Ox O2 Delivery O2 Flow Rate FiO2 06/19/20 15:00 98.0 90 18 143/71 (95) 99 Room Air 98.0 06/18/20 07:54 2.0 Labs Laboratory Tests Test 06/18/20 08:42 White Blood Count 9.3 x10^3/uL (4.0-11.0) Red Blood Count 4.41 x10^6/uL (3.50-5.40) Hemoglobin 12.0 g/dL (12.0-15.5) Hematocrit 34.6 % (36.0-47.0) Mean Corpuscular Volume 79 fL (79-100) Mean Corpuscular Hemoglobin 27 pg (25-35) Mean Corpuscular Hemoglobin Concent 35 g/dL (31-37) Red Cell Distribution Width 14.5 % (11.5-14.5) Platelet Count 340 x10^3/uL (140-400) Neutrophils (%) (Auto) 71 % (31-73) Lymphocytes (%) (Auto) 20 % (24-48) Monocytes (%) (Auto) 7 % (0-9) Eosinophils (%) (Auto) 1 % (0-3) Basophils (%) (Auto) 0 % (0-3) Neutrophils # (Auto) 6.6 x10^3/uL (1.8-7.7) Lymphocytes # (Auto) 1.9 x10^3/uL (1.0-4.8) Monocytes # (Auto) 0.7 x10^3/uL (0.0-1.1) Eosinophils # (Auto) 0.1 x10^3/uL (0.0-0.7) Basophils # (Auto) 0.0 x10^3/uL (0.0-0.2) Sodium Level 143 mmol/L (136-145) Potassium Level 4.2 mmol/L (3.5-5.1) Chloride Level 104 mmol/L (98-107) Carbon Dioxide Level 28 mmol/L (21-32) Anion Gap 11 (6-14) Blood Urea Nitrogen 11 mg/dL (7-20) Creatinine 0.7 mg/dL (0.6-1.0) Estimated GFR (Cockcroft-Gault) 104.0 BUN/Creatinine Ratio 16 (6-20) Glucose Level 264 mg/dL (70-99) Calcium Level 9.1 mg/dL (8.5-10.1) Magnesium Level 1.5 mg/dL (1.8-2.4) Total Bilirubin 0.5 mg/dL (0.2-1.0) Aspartate Amino Transf (AST/SGOT) 16 U/L (15-37) Alanine Aminotransferase (ALT/SGPT) 28 U/L (14-59) Alkaline Phosphatase 157 U/L (46-116) Creatine Kinase 137 U/L (26-192) Creatine Kinase MB (Mass) 0.8 ng/mL (0.0-3.6) Creatine Kinase MB Relative Index 0.6 % (0-4) Troponin I Quantitative < 0.017 ng/mL (0.000-0.055) Total Protein 8.3 g/dL (6.4-8.2) Albumin 3.8 g/dL (3.4-5.0) Albumin/Globulin Ratio 0.8 (1.0-1.7) Allergies Allergies Coded Allergies Type Severity Reaction Last Updated Verified No Known Drug Allergies 05/03/16 No Disposition/Orders: D/C to Home w/ HH Justicifation of Admission Dx: Justifications for Admission: Justification of Admission Dx: Yes ELSY CLAUDIO MD Jun 19, 2020 15:35
[2020-06-19] MEDS ORDERED: ACET325T21 PO (15:36)
--- NOTE | 2020-06-19 15:38 | SNU/HH DC ---
DISCHARGE WITH HOME HEALTH DISCHARGE INFORMATION: Discharge Date: Jun 19, 2020 Final Diagnosis: Problems Medical Problems: (1) Seizure Status: Acute Condition on Discharge: Stable CODE STATUS: Code Status: Full HOME HEALTH: Face to Face: I certify this patient is under my care and that I, or a nurse practitioner or physician's housing assistant working with me, had a face to face encounter that meets the physician face to face encounter requirements with this patient on []. Medical Complications: Other (seizure) Shelter For: Assess & Educate Safety, Assess/Skilled Observatio, Medication Management RN For Eval/Treatment: Yes Physical Therapy For: Evalulation/Treatment Occupational Therapy For: Evaluation/Treatment Speech Language Pathology For: Evaluation/Treatment Home Health Aide For: Self-care GAS DISPATCHER For: Community Resources Pt Meets Homebound Status: Limited distance walking, Poor cognition POST DISCHARGE ORDERS: Activity Instructions for Disc: Activity as tolerated DIET AFTER DISCHARGE: Regular CHECKS AFTER DISCHARGE: Checks after discharge: Check blood press - daily FOLLOW-UP: PCP to follow Home Health: pcp and neurology soon as directed Additional Instructions: TAKE MEDICATION EVERY DAY DIRECTED, TREATMENT/EQUIPMENT ORDERS: Adaptive Equipment Issued: None CERTIFICATION STATEMENT: Certification Statement: Certification Statement: Based on the above finding, I certify that this patient is confined to the home and needs intermittent group home care, physical therapy and/or speech therapy, or continues to need occupational therapy.~ This patient is under my care, and I have initiated the establishment of the plan of care.~ This patient will be followed by myself or a community physician who will periodically review the plan of care. Home Meds Active Scripts Acetaminophen (ACETAMINOPHEN) 325 Mg Tablet, 650 MG PO PRN Q4HRS PRN for TEMP OVER 100.4F OR MILD PAIN for 30 Days, #60 TAB Prov:ELSY CLAUDIO MD 06/19/20 Reported Medications Ezetimibe (ZETIA) 10 Mg Tablet, 10 MG PO DAILY for HLD, TAB 06/18/20 Atorvastatin Calcium (LIPITOR) 80 Mg Tablet, 80 MG PO HS for FOR CHOLESTEROL, #30 TAB 0 Refills 06/18/20 Carvedilol (COREG) 25 Mg Tablet, 25 MG PO BIDWMEALS for CARDIAC, TAB 06/18/20 Levetiracetam (KEPPRA) 750 Mg Tablet, 1 TAB PO BID for SEIZURE for 30 Days, #60 TAB 0 Refills 06/18/20 Levothyroxine Sodium (LEVOTHYROXINE SODIUM) 100 Mcg Tablet, 1 TAB PO DAILY 05/04/16 ELSY CLAUDIO MD Jun 19, 2020 15:38
--- NOTE | 2020-06-19 16:15 | NUR ---
patient discharged home with family. meds and follow up reviewed. outpatient PT/OT will be set up tomorrow, 06/20, per [facility]IL[facility]. IV removed from left EJ intact. pt stable upon dc.
[2020-06-19] MEDS ORDERED: ATORVASTATIN CALCIUM 40 MG TABLET. PO SCH (21:00)
== END 2020-06-19 16:19 | disposition home health service (06) ==
LOC: ER 07:32 → 6 SOUTH 14:59
PROVIDERS: ADMIT Internal Medicine; ATTEND Internal Medicine
DX: G40.909 Epilepsy, unspecified, not intractable, without status epilepticus (principal); I10 Essential (primary) hypertension; E66.01 Morbid (severe) obesity due to excess calories; E03.9 Hypothyroidism, unspecified; D57.3 Sickle-cell trait; I69.398 Other sequelae of cerebral infarction; E11.9 Type 2 diabetes mellitus without complications; E78.5 Hyperlipidemia, unspecified; G81.94 Hemiplegia, unspecified affecting left nondominant side; I63.9 Cerebral infarction, unspecified; M19.90 Unspecified osteoarthritis, unspecified site; R29.700 NIHSS score 0; Z79.899 Other long term (current) drug therapy; Z87.891 Personal history of nicotine dependence; Z91.19 Patient's noncompliance with other medical treatment and regimen; Z98.51 Tubal ligation status; Z98.890 Other specified postprocedural states; Z68.34 Body mass index [BMI] 34.0-34.9, adult
CPT/HCPCS: 36415; 70450; 73030; 73502; 80053; 82553; 83735; 84484; 85025; 93005; 94640; 96361; 96365; 96366; 96375; 99285; G0378; J1953; J3475; J7030; J7060; G0379